=== PATIENT | female | born 1945 | race Caucasian/White ===

== ENCOUNTER 2023-11-15 05:49 | Inpatient (IN) | payer MEDICARE ==
--- NOTE | 2023-11-15 06:24 | ED ---
General Adult HPI - General Chief complaint: Recheck/Abnormal Lab/Rx Stated complaint: High blood pressure Time Seen by Provider: 11/15/23 06:06 Source: patient, EMS, RN notes reviewed Mode of arrival: EMS Limitations: no limitations - History of Present Illness Initial comments: 78-year-old female presents emergency department via EMS from [facility] for e valuation of nausea, fever. Patient reported she been nauseated throughout the night which has improved some now. Patient had notable hypertension but was given medication prior to leaving [facility]. Patient denies chest pain shortness of breath she does have a history of COPD she states she feels weak which is not usual for her. Patient states that she has no localized abdominal pain denies any known sick contacts denies any neck pain or neck stiffness no complaints of headache currently. - Related Data Allergies Allergy/AdvReac Type Severity Reaction Status Date / Time Penicillins Allergy Rash/Hives Verified 11/15/23 05:56 Review of Systems ROS Statement: Those systems with pertinent positive or pertinent negative responses have been documented in the HPI. ROS Other: All systems not noted in ROS Statement are negative. Past Medical History Past Medical History: COPD, Diabetes Mellitus, Hypertension Additional Past Surgical History / Comment(s): Deep brain stimulation Smoking Status: Former smoker Past Alcohol Use History: None Reported Past Drug Use History: None Reported General Exam Limitations: no limitations General appearance: alert, in no apparent distress Head exam: Present: atraumatic, normocephalic, normal inspection Eye exam: Present: normal appearance, PERRL, EOMI. Absent: scleral icterus, c onjunctival injection, periorbital swelling ENT exam: Present: normal exam, normal oropharynx, mucous membranes moist Neck exam: Present: normal inspection, full ROM. Absent: tenderness, meningismus, lymphadenopathy Respiratory exam: Present: normal lung sounds bilaterally. Absent: respiratory distress, wheezes, rales, rhonchi, stridor Cardiovascular Exam: Present: irregular rhythm, normal heart sounds. Absent: regular rate, normal rhythm, systolic murmur, diastolic murmur, rubs, gallop, clicks GI/Abdominal exam: Present: soft, normal bowel sounds. Absent: distended, tenderness, guarding, rebound, rigid Neurological exam: Present: alert, oriented X3, CN II-XII intact Course Vital Signs 11/15/23 11/15/23 05:51 07:41 Temperature 99.3 F Pulse Rate 62 90 Respiratory 17 18 Rate Blood Pressure 140/50 131/60 O2 Sat by Pulse 93 L 97 Oximetry EKG Findings - EKG Comments: EKG Findings:: EKG performed at 6: 27 A-fib with a rate of 91 QRS 81 QT/QTc 365/413 - EKG Results: EKG: interpreted by GALO Medical Decision Making - Medical Decision Making Was pt. sent in by a medical professional or institution (, PA, ELEMENTARY READING SPECIALIST, urgent care, hospital, or [facility]...) When possible be specific @ -No Did you speak to anyone other than the patient for history (EMS, parent, family, police, friend...)? What history was obtained from this source @ -No Did you review nursing and triage notes (agree or disagree)? Why? @ -I reviewed and agree with nursing and triage notes Were old charts reviewed (outside hosp., previous admission, EMS record, old EKG, old radiological studies, urgent care reports/EKG's, [facility] records)? Report findings @ -No old charts were reviewed Differential Diagnosis (chest pain, altered mental status, abdominal pain women, abdominal pain men, vaginal bleeding, weakness, fever, dyspnea, syncope, headache, dizziness, GI bleed, back pain, seizure, CVA, palpatations, mental health, musculoskeletal)? @ -Differential Weakness: Hypoglycemia, shock, sepsis, hyponatremia, anemia, infection, GA, ETOH, adverse medicine reaction, overdose, stroke, this is not meant to be an all-inclusive list. Differential Fever: Pneumonia, viral URI, endocarditis, myocarditis, pericarditis, otitis, sinusit is, peritonsillar Abscess, retropharyngeal Abscess, epiglottitis, peritonitis, appendicitis, diverticulitis, hepatitis, colitis, UTI, PID, TOA, pyelonephritis, prostatitis, epididymitis, meningitis, encephalitis, pulmonary embolism, CVA, thyroid storm, pancreatitis, adrenal crisis, cavernous sinus thrombosis, this is not meant to be an all-inclusive list. EKG interpreted by me (3pts min.). @ -As above X-rays interpreted by me (1pt min.). @ -Chest x-ray shows multifocal pneumonia CT interpreted by me (1pt min.). @ -None done U/S interpreted by me (1pt. min.). @ -None done What testing was considered but not performed or refused? (CT, X-rays, U/S, labs)? Why? @ -None What meds were considered but not given or refused? Why? @ -None Did you discuss the management of the patient with other professionals (professionals i.e. , PA, ELEMENTARY READING SPECIALIST, lab, RT, psych nurse, psychologist social, [employer], teacher, unarmed security officer, case operator)? Give summary @ -Dr. Jamison for admission for bilateral pneumonia, new onset A-fib Was smoking cessation discussed for >3mins.? @ -No Was critical care preformed (if so, how long)? @ -No Were there social determinants of health that impacted care today? How? (Homelessness, low income, unemployed, alcoholism, drug addiction, transportation, low edu. Level, literacy, decrease access to med. care, skilled nursing, rehab)? @ -No Was there de-escalation of care discussed even if they declined (Discuss DNR or withdrawal of care, Hospice)? DNR status @ -No What co-morbidities impacted this encounter? (DM, HTN, Smoking, COPD, CAD, Cancer, CVA, ARF, Chemo, Hep., AIDS, mental health diagnosis, sleep apnea, morbid obesity)? @ -None Was patient admitted / discharged? Hospital course, mention meds given and route, prescriptions, significant lab abnormalities, going to OR and other pertinent info. @ -Admitted patient is found to have bilateral multifocal pneumonia patient is in A-fib but rate controlled and no history. Patient will be admitted for further treatment and management patient did have blood cultures, IV antibiotics started. Undiagnosed new problem with uncertain prognosis? @ -No Drug Therapy requiring intensive monitoring for toxicity (Heparin, Nitro, Insulin, Cardizem)? @ -No Were any procedures done? @ -No Diagnosis/symptom? @ -Pneumonia multifocal, A-fib Acute, or Chronic, or Acute on Chronic? @ -Acute Uncomplicated (without systemic symptoms) or Complicated (systemic symptoms)? @ -Complicated Side effects of treatment? @ -No Exacerbation, Progression, or Severe Exacerbation? @ -No Poses a threat to life or bodily function? How? (Chest pain, USA, GA, pneumonia, PE, COPD, DKA, ARF, appy, cholecystitis, CVA, Diverticulitis, Homicidal, Suicidal, threat to staff... and all critical care pts) @ -Yes pneumonia, respiratory failure - Lab Data Result diagrams: 11/15/23 06:39 11/15/23 06:39 Lab Results 11/15/23 11/15/23 11/15/23 Range/Units 06:39 06:39 06:39 WBC 19.8 H (3.8-10.6) k/uL RBC 3.80 (3.80-5.40) m/uL Hgb 10.4 L (11.4-16.0) gm/dL Hct 32.8 L (34.0-46.0) % MCV 86.4 (80.0-100.0) fL MCH 27.4 (25.0-35.0) pg MCHC 31.7 (31.0-37.0) g/dL RDW 15.0 (11.5-15.5) % Plt Count 353 (150-450) k/uL MPV 8.4 Neutrophils % 88 % Lymphocytes % 6 % Monocytes % 4 % Eosinophils % 1 % Basophils % 0 % Neutrophils # 17.5 H (1.3-7.7) k/uL Lymphocytes # 1.2 (1.0-4.8) k/uL Monocytes # 0.7 (0-1.0) k/uL Eosinophils # 0.2 (0-0.7) k/uL Basophils # 0.1 (0-0.2) k/uL Sodium 136 L (137-145) mmol/L Potassium 4.3 (3.5-5.1) mmol/L Chloride 100 (98-107) mmol/L Carbon Dioxide 32 H (22-30) mmol/L Anion Gap 4 mmol/L BUN 32 H (7-17) mg/dL Creatinine 0.67 (0.52-1.04) mg/dL Est GFR (CKD-EPI)AfAm >90 (>60 ml/min/1.73 sqM) Est GFR (CKD-EPI)NonAf 83 (>60 ml/min/1.73 sqM) Glucose 142 H (74-99) mg/dL Plasma Lactic Acid Joseph 1.1 (0.7-2.0) mmol/L Calcium 9.4 (8.4-10.2) mg/dL Total Bilirubin 0.6 (0.2-1.3) mg/dL AST 27 (14-36) U/L ALT 27 (4-34) U/L Alkaline Phosphatase 100 (38-126) U/L Total Protein 6.3 (6.3-8.2) g/dL Albumin 3.7 (3.5-5.0) g/dL Lipase 145 (23-300) U/L Disposition Clinical Impression: Pneumonia, A-fib Disposition: ADMITTED IP TO THIS HOSP Condition: Fair Referrals: Charles Lal DO [Primary Care Provider] - 1-2 days Time of Disposition: 07:51
[2023-11-15] MEDS: SODIUM CHLORIDE 0.9% 500 ML 500 ML IV STA (06:41)
--- NOTE | 2023-11-15 07:25 | XR ---
EXAMINATION TYPE: XR chest 2V DATE OF EXAM: 11/15/2023 7:17 AM CLINICAL INDICATION:Female, 78 years old with history of fever; COMPARISON: None TECHNIQUE: XR chest 2V Frontal and lateral views of the chest. FINDINGS: Lungs/Pleura: Multifocal airspace opacities. No evidence of pneumothorax or pleural effusion. Pulmonary vascularity: Pulmonary vascular congestion. Heart/mediastinum: Cardiomediastinal silhouette is enlarged and stable. Musculoskeletal: No acute osseous pathology. Other findings: None IMPRESSION: Multifocal airspace opacities concerning for pneumonia versus congestive heart failure pulmonary jam a.
[2023-11-15 07:36] LABS: ALT 27 U/L (4-34); AST 27 U/L (14-36); African American GFR (CKD) >90 (>60 ml/min/1.73 sqM); Albumin 3.7 g/dL (3.5-5.0); Alkaline Phosphatase 100 U/L (38-126); Anion Gap 4 mmol/L; Blood Urea Nitrogen 32 mg/dL (7-17); Calcium 9.4 mg/dL (8.4-10.2); Carbon Dioxide 32 mmol/L (22-30); Chloride 100 mmol/L (98-107); Glucose 142 mg/dL (74-99); Lipase 145 U/L (23-300); Non-African American GFR(CKD) 83 (>60 ml/min/1.73 sqM); Potassium 4.3 mmol/L (3.5-5.1); Sodium 136 mmol/L (137-145); Total Bilirubin 0.6 mg/dL (0.2-1.3); Total Protein 6.3 g/dL (6.3-8.2)
[2023-11-15 07:37] LABS: Basophils # (A) 0.1 k/uL (0-0.2); Basophils % (A) 0 %; Eosinophils # (A) 0.2 k/uL (0-0.7); Eosinophils % (A) 1 %; HCT 32.8 % (34.0-46.0); HGB 10.4 gm/dL (11.4-16.0); Lymphocytes # (A) 1.2 k/uL (1.0-4.8); Lymphocytes % (A) 6 %; MCH 27.4 pg (25.0-35.0); MCHC 31.7 g/dL (31.0-37.0); MCV 86.4 fL (80.0-100.0); Mean Platelet Volume 8.4; Monocytes # (A) 0.7 k/uL (0-1.0); Monocytes % (A) 4 %; Neutrophils # (A) 17.5 k/uL (1.3-7.7); Neutrophils % (A) 88 %; Platelet Count 353 k/uL (150-450); WBC 19.8 k/uL (3.8-10.6)
[2023-11-15] MEDS ORDERED: PNEUMONIA PROTOCOL UTILIZED 1 EACH MISC PO PRN (07:51)
[2023-11-15] MEDS: HEPARIN SODIUM 1,000 UN/ML (10ML VL) IV ONE (08:44)
[2023-11-15] MEDS: HEPARIN SOD,PORK IN 0.45% NACL 25,000 UNIT in 0.45% NACL 1 250ML.BAG IV SCH (08:45)
[2023-11-15] MEDS: AZITHROMYCIN 500 MG in SODIUM CHLORIDE 0.9% 250 ML IVPB STA (08:46)
[2023-11-15 12:11] LABS: Appearance,Urine Clear (Clear); Bilirubin,Urine Negative (Negative); Blood,Urine Negative (Negative); Color,Urine Colorless; Glucose,Urine (UA) Negative (Negative); Ketones,Urine Negative (Negative); Leukocyte Esterase,Urine Negative (Negative); Nitrite,Urine Negative (Negative); PH, Urine 7.5 (5.0-8.0); Protein,Urine 1+ (Negative); RBC,Urine 1 /hpf (0-5); Specific Gravity,Urine 1.011 (1.001-1.035); Squamous Epithelial Cell,Urine 1 /hpf (0-4); Urobilinogen,Urine <2.0 mg/dL (<2.0); WBC,Urine 1 /hpf (0-5)
[2023-11-15] MEDS ORDERED: BACLOFEN 10 MG TAB PO PRN (13:22)
[2023-11-15] MEDS ORDERED: bisacodyL 10 MG SUPP RECTAL PRN (13:22)
[2023-11-15] MEDS ORDERED: NA PHOS,M-B/NA PHOS,DI-BA 133 ML ENEMA RECTAL PRN (13:22)
[2023-11-15] MEDS: carvediloL 6.25 MG TAB PO SCH (13:32)
[2023-11-15] MEDS ORDERED: NON FORMULARY DRUG (Glucerna Shake 1 CAN Ml) PO SCH (14:00)
[2023-11-15] MEDS ORDERED: CALCIUM CARBONATE 500 MG CHEWABLE PO PRN (15:46)
[2023-11-15] MEDS ORDERED: ONDANSETRON 4 MG/2 ML VIAL IVP PRN (15:46)
[2023-11-15] MEDS ORDERED: NALOXONE 0.4 MG/ML 1 ML VIAL IV PRN (15:46)
--- NOTE | 2023-11-15 15:48 | P.HPIM ---
History of Present Illness H&P Date: 11/15/23 Chief Complaint: Not feeling well This is a 78-year-old patient was transferred here from [facility]. Symptoms of nausea and fever. Patient was nauseated throughout the night patient reports some baseline shortness of breath denies any more short of breath than usual. No obvious chest pain. He thinks her appetite is okay. Does use a wheelchair. Has a bowel movement every day. Denies any abdominal pain. Review of systems: GEN.: Tired EYES: None HEENT: None NECK: None RESPIRATORY: Short of breath CARDIOVASCULAR: None GASTROINTESTINAL: None GENITOURINARY: None MUSCULOSKELETAL: Joint pains] LYMPHATICS: None HEMATOLOGICAL: None PSYCHIATRY: [Bit forgetful NEUROLOGICAL: Uses a wheelchair Social history: Former smoker. Currently lives at [facility] Physical examination: VITAL SIGNS: 99.3, 62, 17, 140/50, 93% on 2 L GENERAL: BMI 17.4, thin built reclining a bit short of breath. EYES: Pupils equal. Conjunctiva sultana l. HEENT: External appearance of nose and ears normal, oral cavity grossly normal. NECK: JVD not raised; masses not palpable. HEART: First and second heart sounds are normal; no edema. LUNGS: Respiratory rate increased, diminished breath sounds. ABDOMEN: Soft, nontender, liver spleen not palpable, no masses palpable. PSYCH: Patient is able to hold a simple conversation l. MUSCULOSKELETAL:No Clubbing/cyanosis;muscles-grossly intact. Loss of muscle mass subcutaneous fat. OA. NEUROLOGICAL: Cranial nerves grossly intact; no facial asymmetry, power and sensation grossly intact. LYMPHATICS: No lymph nodes palpable in the axilla and neck INVESTIGATIONS, reviewed in the clinical context: November 15, 2023: White count 19.8 hemoglobin 10.4 platelets 353 sodium 136 potassium 4.3 BUN 32 creatinine 0.67 Troponin I 0.054, 0.045 Procalcitonin 0.10 UA: Protein 1+ Influenza type A, type B RSV, COVID-19: Not detected EKG tracing personally reviewed by me-atrial fibrillation. Rate 91 Chest x-ray film personally reviewed by me-scattered infiltrates. Pacemaker. Assessment and plan: -Multifocal pneumonia, suspect gram-negative organism IV Zithromax. IV ceftriaxone. -Chronic medical debility -Chronic gait dysfunction uses a walker at baseline -Severe protein calorie malnutrition probably from decreased oral intake Food supplement. High-protein diet -Essential hypertension Cozaar 50 mg twice daily Coreg -Persistent atrial fibrillation, rate controlled Coreg -Depression Zoloft 100 mg a day -COPD exacerbation in a prior smoker DuoNeb 3times daily nebulized Pulmicort Care was discussed with patient. Past Medical History Past Medical History: COPD, Diabetes Mellitus, Hypertension Additional Past Surgical History / Comment(s): Deep brain stimulation Smoking Status: Former smoker Past Alcohol Use History: None Reported Past Drug Use History: None Reported Medications and Allergies Home Medications Medication Instructions Recorded Confirmed Type ALPRAZolam [Xanax] 0.25 mg PO BID PRN 11/15/23 11/15/23 History Acetaminophen Tab [Tylenol] 650 mg PO Q4H PRN 11/15/23 11/15/23 History Baclofen 5 mg PO TID PRN 11/15/23 11/15/23 History Doxazosin [Cardura] 2 mg PO BID@0800,1700 11/15/23 11/15/23 History Fluticasone/Vilanterol [Breo 1 puff INHALATION RT-DAILY@79911/15/23 11/15/23 History Ellipta 100-25 Mcg Inhalr] Glucerna Shake 120 - 237 ml PO TID@0800,1400,1700 11/15/23 11/15/23 History INSULIN ASPART (NovoLOG) [NovoLOG See Protocol SQ ACHS 11/15/23 11/15/23 History (formulary)] Losartan [Cozaar] 50 mg PO BID@0800,1700 11/15/23 11/15/23 History Magnesium Hydroxide [Milk of 7,200 mg PO Q2D PRN 11/15/23 11/15/23 History Magnesia Concentrate] Montelukast [Singulair] 10 mg PO DAILY@0811/15/23 11/15/23 History Na Phos,M-B/Na Phos,Di-Ba [Fleet 133 ml RECTAL DAILY PRN 11/15/23 11/15/23 History Adult] Pantoprazole [Protonix] 40 mg PO DAILY@0800 11/15/23 11/15/23 History Sertraline [Zoloft] 100 mg PO DAILY@0811/15/23 11/15/23 History bisacodyL [Dulcolax] 10 mg RECTAL DAILY PRN 11/15/23 11/15/23 History carvediloL [Coreg] 6.25 mg PO Q12HR@0800,2100 11/15/23 11/15/23 History Allergies Allergy/AdvReac Type Severity Reaction Status Date / Time Penicillins Allergy Rash/Hives Verified 11/15/23 12:26 Physical Exam Vitals: Vital Signs Temp Pulse Resp BP Pulse Ox 11/15/23 09:48 75 18 96 11/15/23 07:41 90 18 131/60 97 11/15/23 05:51 99.3 F 62 17 140/50 93 L Intake and Output 11/14/23 11/15/23 11/15/23 22:59 06:59 14:59 Other: Weight 40.37 kg Results CBC & Chem 7: 11/15/23 06:39 11/15/23 06:39 Labs: Abnormal Lab Results - Last 24 Hours (Table) 11/15/23 11/15/23 11/15/23 Range/Units 06:39 06:39 06:39 WBC 19.8 H (3.8-10.6) k/uL Hgb 10.4 L (11.4-16.0) gm/dL Hct 32.8 L (34.0-46.0) % Neutrophils # 17.5 H (1.3-7.7) k/uL Sodium 136 L (137-145) mmol/L Carbon Dioxide 32 H (22-30) mmol/L BUN 32 H (7-17) mg/dL Glucose 142 H (74-99) mg/dL Troponin I 0.054 H* (0.000-0.034) ng/mL
[2023-11-15] MEDS: HEPARIN SODIUM 1,000 UN/ML (10ML VL) IV PRN (16:03)
[2023-11-15] MEDS: LOSARTAN 50 MG TAB PO SCH (16:06)
[2023-11-15] MEDS: DOXAZOSIN 2 MG TAB PO SCH (17:45)
[2023-11-15] MEDS: ACETAMINOPHEN TAB 325 MG TAB PO PRN (18:13)
[2023-11-15 18:52] LABS: Glucose,Whole Blood 162 mg/dL (70-110)
[2023-11-15] MEDS: BUDESONIDE 1 MG/2 ML NEBU INHALATION SCH (19:23)
[2023-11-15] MEDS: IPRATROPIUM-ALBUTEROL 3 ML NEB INHALATION SCH (19:24)
[2023-11-15 21:03] LABS: Glucose,Whole Blood 141 mg/dL (70-110)
[2023-11-15] MEDS: ALPRAZolam 0.25 MG TAB PO PRN (23:02)
[2023-11-15] MEDS: MELATONIN 3 MG TABLET PO PRN (23:02)
[2023-11-16 04:16] LABS: Basophils # (A) 0.1 k/uL (0-0.2); Basophils % (A) 1 %; Eosinophils # (A) 0.3 k/uL (0-0.7); Eosinophils % (A) 3 %; HCT 34.2 % (34.0-46.0); HGB 10.8 gm/dL (11.4-16.0); Hypochromasia Slight; Lymphocytes % (A) 15 %; MCH 28.1 pg (25.0-35.0); MCHC 31.5 g/dL (31.0-37.0); Mean Platelet Volume 7.6; Monocytes # (A) 0.5 k/uL (0-1.0); Monocytes % (A) 4 %; Neutrophils # (A) 10.5 k/uL (1.3-7.7); Neutrophils % (A) 77 %; Platelet Count 333 k/uL (150-450); RBC 3.84 m/uL (3.80-5.40); WBC 13.6 k/uL (3.8-10.6)
[2023-11-16 04:30] LABS: INR 1.1 (<1.2); Partial Thromboplastin Time 51.4 sec (22.0-30.0); Prothrombin Time 11.7 sec (10.0-12.5)
[2023-11-16 04:32] LABS: Glucose,Whole Blood 121 mg/dL (70-110)
--- NOTE | 2023-11-16 07:33 | XR ---
EXAMINATION TYPE: XR chest 2V DATE OF EXAM: 11/16/2023 COMPARISON: 11/15/2023 HISTORY: Shortness of breath TECHNIQUE: Frontal and lateral views of the chest are obtained. FINDINGS: Scattered senescent parenchymal changes noted. Hyperinflation compatible with COPD. No evidence for infiltrate. No evidence for atelectasis. Heart size is stable. Mediastinal structures are stable and grossly unremarkable. No evidence for hilar prominence. Small effusions persist without significant change. Degenerative changes dorsal spine. IMPRESSION: 1. No evidence for acute pulmonary disease.
[2023-11-16] MEDS ORDERED: SYMBICORT 80-4.5 MCG INHALER INHALATION SCH (08:00)
[2023-11-16] MEDS: SERTRALINE 100 MG TAB PO SCH (08:23)
[2023-11-16] MEDS: PANTOPRAZOLE 40 MG TABLET PO SCH (08:23)
[2023-11-16] MEDS: MONTELUKAST 10 MG TAB PO SCH (08:23)
[2023-11-16] MEDS: AZITHROMYCIN 500 MG in SODIUM CHLORIDE 0.9% 250 ML IVPB SCH (10:05)
[2023-11-16 12:16] LABS: Glucose,Whole Blood 146 mg/dL (70-110)
[2023-11-16 16:28] LABS: Glucose,Whole Blood 132 mg/dL (70-110)
--- NOTE | 2023-11-16 17:28 | P.PN ---
Progress Note - Text Progress Note Date: 11/16/23 Chief Complaint: Not feeling well This is a 78-year-old patient was transferred here from [facility]. Symptoms of nausea and fever. Patient was nauseated throughout the night patient reports some baseline shortness of breath denies any more short of breath than usual. No obvious chest pain. He thinks her appetite is okay. Does use a wheelchair. Has a bowel movement every day. Denies any abdominal pain. November 15: Resting in bed. Tired. A bit short of breath. Tolerating diet. IV ceftriaxone. Troponinemia felt to be type II. With underlying infection. Consult cardiology. 2D echo. Active Medications Acetaminophen (Acetaminophen Tab 325 Mg Tab) 650 mg PO Q4H PRN PRN Reason: Fever and/ or Pain Last Admin: 11/15/23 18:13 Dose: 650 mg Albuterol/Ipratropium (Ipratropium-Albuterol 3 Ml Neb) 3 ml INHALATION RT-TID [facility] [place] Last Admin: 11/16/23 11:42 Dose: 3 ml Alprazolam (Alprazolam 0.25 Mg Tab) 0.25 mg PO BID PRN PRN Reason: Anxiety Last Admin: 11/15/23 23:02 Dose: 0.25 mg Baclofen (Baclofen 10 Mg Tab) 5 mg PO TID PRN PRN Reason: Muscle Spasm Bisacodyl (Bisacodyl 10 Mg Supp) 10 mg RECTAL DAILY PRN PRN Reason: Constipation Budesonide (Budesonide 1 Mg/2 Ml Nebu) 1 mg INHALATION RT-BID [facility] [place] Last Admin: 11/16/23 08:20 Dose: 1 mg Calcium Carbonate/Glycine (Calcium Carbonate 500 Mg Chewable) 1,000 mg PO Q4HR PRN PRN Reason: Dyspepsia Carvedilol (Carvedilol 6.25 Mg Tab) 6.25 mg PO Q12HR@0800,2100 [facility] Last Admin: 11/16/23 08:23 Dose: 6.25 mg Doxazosin Mesylate (Doxazosin 2 Mg Tab) 2 mg PO BID@0800,1700 [facility] [place] Last Admin: 11/16/23 16:28 Dose: 2 mg Heparin Sodium (Porcine) (Heparin Sodium 1,000 Un/Ml (10ml Vl)) 0 unit IV PER PROTOCOL PRN; Protocol PRN Reason: Low PTT Last Admin: 11/16/23 00:59 Dose: 2,018 unit Ceftriaxone Sodium 2 gm/ (Sodium Chloride) 50 mls @ 100 mls/hr IVPB Q24HR [facility]; Protocol Stop: 11/19/23 09:29 Last Admin: 11/16/23 08:24 Dose: 100 mls/hr Azithromycin 500 mg/ Sodium (Chloride) 250 mls @ 250 mls/hr IVPB DAILY [facility]; Protocol Stop: 11/18/23 09:01 Last Admin: 11/16/23 10:05 Dose: 250 mls/hr Heparin Sodium/Sodium Chloride (25,000 unit/ Sodium Chloride) 250 mls @ 4.844 mls/hr IV .Q24H [facility] [place]; Protocol Last Admin: 11/16/23 09:48 Dose: Not Given Losartan Potassium (Losartan 50 Mg Tab) 50 mg PO BID@0800,1700 [facility] [place] Last Admin: 11/16/23 16:28 Dose: 50 mg Melatonin (Melatonin 3 Mg Tablet) 3 mg PO HS PRN PRN Reason: Insomnia Last Admin: 11/15/23 23:02 Dose: 3 mg Miscellaneous Information (Pneumonia Protocol Utilized 1 Each Misc) 1 each PO ONCE PRN PRN Reason: Per Protocol Montelukast Sodium (Montelukast 10 Mg Tab) 10 mg PO DAILY@0800 [facility] [place] Last Admin: 11/16/23 08:23 Dose: 10 mg Naloxone HCl (Naloxone 0.4 Mg/Ml 1 Ml Vial) 0.2 mg IV Q2M PRN PRN Reason: Opioid Reversal Ondansetron HCl (Ondansetron 4 Mg/2 Ml Vial) 4 mg IVP Q8HR PRN PRN Reason: Nausea And Vomiting Pantoprazole Sodium (Pantoprazole 40 Mg Tablet) 40 mg PO DAILY@0800 [facility] [place] Last Admin: 11/16/23 08:23 Dose: 40 mg Sertraline HCl (Sertraline 100 Mg Tab) 100 mg PO DAILY@0800 [facility] [place] Last Admin: 11/16/23 08:23 Dose: 100 mg Sodium Biphosphate/Sodium Phosphate (Na Phos,M-B/Na Phos,Di-Ba 133 Ml Enema) 133 ml RECTAL DAILY PRN PRN Reason: Constipation Social history: Former smoker. Currently lives at [facility] Physical examination: VITAL SIGNS: Afebrile, 70, 18, 120 x 76, 98% on 2 L GENERAL: BMI 17.4, thin built reclining a bit, tired, eating a sandwich EYES: Pupils equal. Conjunctiva sultana l. HEENT: External appearance of nose and ears normal, oral cavity grossly normal. NECK: JVD not raised; masses not palpable. HEART: First and second heart sounds are normal; no edema. LUNGS: Respiratory rate increased, diminished breath sounds. ABDOMEN: Soft, nontender, liver spleen not palpable, no masses palpable. PSYCH: Patient is able to hold a simple conversation l. MUSCULOSKELETAL:No Clubbing/cyanosis;muscles-grossly intact. Loss of muscle mass subcutaneous fat. OA. INVESTIGATIONS, reviewed in the clinical context: November 15, 2023: White count 19.8 hemoglobin 10.4 platelets 353 sodium 136 potassium 4.3 BUN 32 creatinine 0.67 Troponin I 0.054, 0.045 Procalcitonin 0.10 UA: Protein 1+ Influenza type A, type B RSV, COVID-19: Not detected EKG tracing personally reviewed by me-atrial fibrillation. Rate 91 Chest x-ray film personally reviewed by me-scattered infiltrates. Pacemaker. Assessment and plan: -Multifocal pneumonia, suspect gram-negative organism IV Zithromax. IV ceftriaxone. -Chronic medical debility -Chronic gait dysfunction uses a walker at baseline -Severe protein calorie malnutrition probably from decreased oral intake Food supplement. High-protein diet -Troponinemia, likely type II OR hemodynamic mismatch Consult cardiology. 2D echo. -Essential hypertension Cozaar 50 mg twice daily Coreg -Persistent atrial fibrillation, rate controlled Coreg -Depression Zoloft 100 mg a day -COPD exacerbation in a prior smoker DuoNeb 3times daily nebulized Pulmicort Discussed with patient. No chest pain. DC IV heparin Past Medical History Past Medical History: COPD, Diabetes Mellitus, Hypertension Additional Past Surgical History / Comment(s): Deep brain stimulation Smoking Status: Former smoker Past Alcohol Use History: None Reported Past Drug Use History: None Reported
[2023-11-16 19:32] LABS: Glucose,Whole Blood 199 mg/dL (70-110)
[2023-11-16] MEDS ORDERED: HEPARIN SODIUM 1,000 UN/ML (10ML VL) IV PRN (20:21)
[2023-11-16] MEDS: HEPARIN SOD,PORK IN 0.45% NACL 25,000 UNIT in 0.45% NACL 1 250ML.BAG IV SCH (21:08)
[2023-11-16] MEDS: HEPARIN SODIUM 1,000 UN/ML (10ML VL) IV ONE (21:44)
[2023-11-17 05:59] LABS: Glucose,Whole Blood 160 mg/dL (70-110)
[2023-11-17 07:06] LABS: Basophils # (A) 0.1 k/uL (0-0.2); Basophils % (A) 1 %; Eosinophils # (A) 0.4 k/uL (0-0.7); Eosinophils % (A) 4 %; HCT 30.9 % (34.0-46.0); HGB 9.7 gm/dL (11.4-16.0); Lymphocytes # (A) 1.9 k/uL (1.0-4.8); Lymphocytes % (A) 20 %; MCH 27.5 pg (25.0-35.0); MCHC 31.3 g/dL (31.0-37.0); MCV 88.1 fL (80.0-100.0); Mean Platelet Volume 7.3; Monocytes # (A) 0.5 k/uL (0-1.0); Monocytes % (A) 6 %; Neutrophils # (A) 6.6 k/uL (1.3-7.7); Neutrophils % (A) 69 %; Platelet Count 301 k/uL (150-450); RBC 3.51 m/uL (3.80-5.40); RDW 15.1 % (11.5-15.5); WBC 9.5 k/uL (3.8-10.6)
[2023-11-17 07:18] LABS: Partial Thromboplastin Time 33.3 sec (22.0-30.0); Prothrombin Time 10.9 sec (10.0-12.5)
--- NOTE | 2023-11-17 11:13 | P.CRDCN ---
History of Present Illness History of present illness: HISTORY OF PRESENT ILLNESS: This is a 78-year-old female with a past medical history significant for essential tremors with history of deep brain stimulator, hypertension, diabetes, GERD, and depression. Patient does not follow with a oral and maxillofacial surgery. We have been asked to see the patient in consultation for elevated troponins. Patient examined at the bedside. Patient was brought to the hospital from [facility] secondary to shortness of breath. Patient was found to have pneumonia and is currently on IV antibiotics. Patient currently denies any chest pain or pressure. EKG completed on admission read out as atrial fibrillation. However upon personal review this is sinus mechanism with PACs. Telemetry also revealed sinus mechanism with frequent PACs. There is no evidence of atrial fibrillation at this time. DIAGNOSTICS: - EKG reveals sinus mechanism with PACs. No signs of acute ischemia. - Chest xray multifocal airspace opacities concerning for pneumonia. - Laboratory data: Troponin 0.054. 0.045. - Current home cardiac medications include carvedilol 6.25 mg twice a day, losartan 50 mg twice a day. REVIEW OF SYSTEMS: At the time of my exam: CONSTITUTIONAL: Denies fever or chills. HEENT: Denies blurred vision, vision changes, or eye pain. Denies hemoptysis CARDIOVASCULAR: Denies chest pain. Denies orthopnea. Denies PND. Denies palpitations RESPIRATORY: + shortness of breath. GASTROINTESTINAL: Denies abdominal pain. Denies nausea or vomiting. HEMATOLOGIC: Denies bleeding disorders. GENITOURINARY: Denies any blood in urine. SKIN: Denies pruitis. Denies rash. PHYSICAL EXAM: VITAL SIGNS: Reviewed. GENERAL: Well-developed in no acute distress. HEENT: Head is normocephalic. Pupils are equal, round. Sclerae anicteric. Mucous membranes of the mouth are moist. Neck supple. No JVD or thyromegaly LUNGS: Respirations even and unlabored. Lungs essentially clear to auscultation bilaterally. HEART: Irregular rate and rhythm. S1 and S2 heard. ABDOMEN: Soft. Nondistended. Nontender. EXTREMITIES: Normal range of motion. No clubbing or cyanosis. Peripheral pu lses intact. No lower extremity edema NEUROLOGIC: Awake and alert. Oriented x 3. ASSESSMENT: Shortness of breath Pneumonia Abnormal troponins, flat, likely type II NH secondary to oxygen supply and demand mismatch, no evidence of acute coronary syndrome Atrial fibrillation, ruled out Sinus mechanism with frequent PACs Hypertension Diabetes GERD History of essential tremors with deep brain stimulator Depression PLAN: An acute coronary but has been ruled out Obtain 2D echo to assess cardiac structure and function EKG and telemetry reveal sinus mechanism with frequent PACs. No evidence of atrial fibrillation. Continue telemetry monitoring to assess for any arrhythmias Discontinue IV heparin Further recommendations pending patient course Nurse practitioner note has been reviewed by physician. Signing provider agrees with the documented findings, assessment, and plan of care documented by COMIC ILLUSTRATOR as a scribe. Past Medical History Past Medical History: COPD, Diabetes Mellitus, Hypertension History of Any Multi-Drug Resistant Organisms: None Reported Additional Past Surgical History / Comment(s): Deep brain stimulation Smoking Status: Former smoker Past Alcohol Use History: None Reported Past Drug Use History: None Reported Medications and Allergies Home Medications Medication Instructions Recorded Confirmed Type ALPRAZolam [Xanax] 0.25 mg PO BID PRN 11/15/23 11/15/23 History Acetaminophen Tab [Tylenol] 650 mg PO Q4H PRN 11/15/23 11/15/23 History Baclofen 5 mg PO TID PRN 11/15/23 11/15/23 History Doxazosin [Cardura] 2 mg PO BID@0800,1700 11/15/23 11/15/23 History Fluticasone/Vilanterol [Breo 1 puff INHALATION RT-DAILY@0800 11/15/23 11/15/23 History Ellipta 100-25 Mcg Inhalr] Glucerna Shake 120 - 237 ml PO TID@0800,1400,1700 11/15/23 11/15/23 History INSULIN ASPART (NovoLOG) [NovoLOG See Protocol SQ ACHS 11/15/23 11/15/23 History (formulary)] Losartan [Cozaar] 50 mg PO BID@0800,1700 11/15/23 11/15/23 History Magnesium Hydroxide [Milk of 7,200 mg PO Q2D PRN 11/15/23 11/15/23 History Magnesia Concentrate] Montelukast [Singulair] 10 mg PO DAILY@0800 11/15/23 11/15/23 History Na Phos,M-B/Na Phos,Di-Ba [Fleet 133 ml RECTAL DAILY PRN 11/15/23 11/15/23 History Adult] Pantoprazole [Protonix] 40 mg PO DAILY@0800 11/15/23 11/15/23 History Sertraline [Zoloft] 100 mg PO DAILY@0800 11/15/23 11/15/23 History bisacodyL [Dulcolax] 10 mg RECTAL DAILY PRN 11/15/23 11/15/23 History carvediloL [Coreg] 6.25 mg PO Q12HR@0800,2100 11/15/23 11/15/23 History Allergies Allergy/AdvReac Type Severity Reaction Status Date / Time Penicillins Allergy Rash/Hives Verified 11/15/23 12:26 Physical Exam Vitals: Vital Signs Temp Pulse Pulse Resp BP Pulse Ox 11/17/23 04:00 98.7 F 102 H 18 163/58 95 11/17/23 02:00 79 18 11/17/23 00:00 98.6 F 79 18 130/57 97 11/16/23 21:29 82 11/16/23 21:11 84 11/16/23 20:00 99.6 F 108 H 18 140/67 93 L 11/16/23 16:00 97.9 F 68 18 154/69 93 L 11/16/23 14:00 70 18 11/16/23 11:51 71 18 11/16/23 11:42 74 18 11/16/23 11:25 70 18 128/76 98 11/16/23 09:09 98 18 11/16/23 08:31 100 18 11/16/23 08:22 101 H 20 97 11/16/23 08:10 98 18 176/108 96 Intake and Output 11/16/23 11/17/23 11/17/23 22:59 06:59 14:59 Intake Total 1190 10 Balance 1190 10 Intake: IV 10 10 Invasive Line 2 10 10 Oral 1180 Other: Voiding Method Toilet Diaper # Voids 1 Weight 40.37 kg Results 11/17/23 06:41 11/15/23 06:39 Coagulation 11/17/23 Range/Units 06:41 PT 10.9 (10.0-12.5) sec APTT 33.3 H (22.0-30.0) sec CBC 11/17/23 Range/Units 06:41 WBC 9.5 (3.8-10.6) k/uL RBC 3.51 L (3.80-5.40) m/uL Hgb 9.7 L (11.4-16.0) gm/dL Hct 30.9 L (34.0-46.0) % Plt Count 301 (150-450) k/uL Current Medications Generic Name Dose Route Start Last Admin Trade Name Freq PRN Reason Stop Dose Admin Acetaminophen 650 mg 11/15/23 13:22 11/15/23 18:13 Acetaminophen Tab 325 Mg Tab PO 650 mg Q4H PRN Administration Fever and/ or Pain Albuterol/Ipratropium 3 ml 11/15/23 15:46 11/16/23 21:10 Ipratropium-Albuterol 3 Ml Neb INHALATION 3 ml RT-TID STEVEN Administration Alprazolam 0.25 mg 11/15/23 13:22 11/15/23 23:02 Alprazolam 0.25 Mg Tab PO 0.25 mg BID PRN Administration Anxiety Baclofen 5 mg 11/15/23 13:22 Baclofen 10 Mg Tab PO TID PRN Muscle Spasm Bisacodyl 10 mg 11/15/23 13:22 Bisacodyl 10 Mg Supp RECTAL DAILY PRN Constipation Budesonide 1 mg 11/15/23 15:46 11/16/23 21:10 Budesonide 1 Mg/2 Ml Nebu INHALATION 1 mg RT-BID STEVEN Administration Calcium Carbonate/Glycine 1,000 mg 11/15/23 15:46 Calcium Carbonate 500 Mg Chewable PO Q4HR PRN Dyspepsia Carvedilol 6.25 mg 11/15/23 13:22 11/16/23 20:12 Carvedilol 6.25 Mg Tab PO 6.25 mg Q12HR@0800,2100 STEVEN Administration Doxazosin Mesylate 2 mg 11/15/23 17:00 11/16/23 16:28 Doxazosin 2 Mg Tab PO 2 mg BID@0800,1700 STEVEN Administration Heparin Sodium (Porcine) 0 unit 11/16/23 20:21 Heparin Sodium 1,000 Un/Ml (10ml Vl) IV PER PROTOCOL PRN Low PTT Protocol Ceftriaxone Sodium 2 gm/ 50 mls @ 100 mls/hr 11/16/23 09:00 11/16/23 08:24 Sodium Chloride IVPB 11/19/23 09:29 100 mls/hr Q24HR STEVEN Administration Protocol Azithromycin 500 mg/ Sodium 250 mls @ 250 mls/hr 11/16/23 09:00 11/16/23 10:05 Chloride IVPB 11/18/23 09:01 250 mls/hr DAILY STEVEN Administration Protocol Heparin Sodium/Sodium Chloride 250 mls @ 7.267 mls/hr 11/16/23 20:30 11/16/23 21:08 25,000 unit/ Sodium Chloride IV 18 units/kg/hr .Q24H STEVEN 7.267 mls/hr Administration Protocol 18 UNITS/KG/HR Losartan Potassium 50 mg 11/15/23 17:00 11/16/23 16:28 Losartan 50 Mg Tab PO 50 mg BID@0800,1700 STEVEN Administration Melatonin 3 mg 11/15/23 15:46 11/15/23 23:02 Melatonin 3 Mg Tablet PO 3 mg HS PRN Administration Insomnia Miscellaneous Information 1 each 11/15/23 07:51 Pneumonia Protocol Utilized 1 Each Misc PO ONCE PRN Per Protocol Montelukast Sodium 10 mg 11/16/23 08:00 11/16/23 08:23 Montelukast 10 Mg Tab PO 10 mg DAILY@0800 STEVEN Administration Naloxone HCl 0.2 mg 11/15/23 15:46 Naloxone 0.4 Mg/Ml 1 Ml Vial IV Q2M PRN Opioid Reversal Ondansetron HCl 4 mg 11/15/23 15:46 Ondansetron 4 Mg/2 Ml Vial IVP Q8HR PRN Nausea And Vomiting Pantoprazole Sodium 40 mg 11/16/23 08:00 11/16/23 08:23 Pantoprazole 40 Mg Tablet PO 40 mg DAILY@0800 STEVEN Administration Sertraline HCl 100 mg 11/16/23 08:00 11/16/23 08:23 Sertraline 100 Mg Tab PO 100 mg DAILY@0800 STEVEN Administration Sodium Biphosphate/Sodium Phosphate 133 ml 11/15/23 13:22 Na Phos,M-B/Na Phos,Di-Ba 133 Ml Enema RECTAL DAILY PRN Constipation Intake and Output 11/16/23 11/17/23 11/17/23 22:59 06:59 14:59 Intake Total 1190 10 Balance 1190 10 Intake: IV 10 10 Invasive Line 2 10 10 Oral 1180 Other: Voiding Method Toilet Diaper # Voids 1 Weight 40.37 kg 11/17/23 06:41 11/15/23 06:39
[2023-11-17 11:33] LABS: Glucose,Whole Blood 148 mg/dL (70-110)
--- NOTE | 2023-11-17 13:08 | CA ---
Transthoracic Echo Report Name: Vivienne Colón Age: 78 Gender: F : 1945 Exam Date: 11/17/2023 10:12 Exam Location: [place] [facility] Ht (in): 60 Wt (lb): 89 Ordering Physician: Rudy Jamison MD Attending/Referring Phys: Research Investigator Hiwot Manuel RDCS Procedure CPT: Indications: Positive troponin Cardiac Hx: Technical Quality: Good Contrast 1: Total Dose (mL): Contrast 2: Total Dose (mL): MEASUREMENTS (Male / Female) Normal Values 2D ECHO LV Diastolic Diameter PLAX 4.8 cm 4.2 - 5.9 / 3.9 - 5.3 cm LV Systolic Diameter PLAX 2.9 cm IVS Diastolic Thickness 1.0 cm 0.6 - 1.0 / 0.6 - 0.9 cm LVPW Diastolic Thickness 1.1 cm 0.6 - 1.0 / 0.6 - 0.9 cm LV Relative Wall Thickness 0.4 RV Internal Dim ED PLAX 1.6 cm LVOT Diameter 1.7 cm LA Systolic Diameter LX 4.6 cm 3.0 - 4.0 / 2.7 - 3.8 cm LV Diastolic Volume MOD BP 58.8 cm??? 67 - 155 / 56 - 104 cm??? LV Systolic Volume MOD BP 15.5 cm??? - 58 / 19 - 49 cm??? LV Ejection Fraction MOD BP 73.6 % >= 55 % LV Cardiac Index MOD BP 2627.2 cm???/min???m??? LV Diastolic Volume MOD 4C 68.8 cm??? LV Systolic Volume MOD 4C 12.8 cm??? LV Ejection Fraction MOD 4C 81.4 % LV Cardiac Index MOD 4C 3400.8 cm???/min???m??? LV Diastolic Length 4C 6.1 cm LV Systolic Length 4C 5.1 cm LV Diastolic Volume MOD 2C 50.0 cm??? LV Systolic Volume MOD 2C 19.7 cm??? LV Ejection Fraction MOD 2C 60.5 % LV Cardiac Index MOD 2C 1840.8 cm???/min???m??? LV Diastolic Length 2C 6.0 cm LV Systolic Length 2C 5.1 cm LA Volume 143.6 cm??? 18 - 58 / 22 - 52 cm??? LA Volume Index 110.4 cm???/m??? 16 - 28 cm???/m??? M-MODE Aortic Root Diameter MM 3.5 cm LA Systolic Diameter MM 3.7 cm LA Ao Ratio MM 1.1 AV Cusp Separation MM 1.7 cm DOPPLER AV Peak Velocity 147.5 cm/s AV Peak Gradient 8.7 mmHg MV Peak Velocity 229.5 cm/s MV Peak Gradient 21.1 mmHg MV Mean Velocity 143.6 cm/s MV Mean Gradient 9.6 mmHg MV Velocity Time Integral 81.5 cm MV Area PHT 1.7 cm??? Mitral E Point Velocity 202.9 cm/s Mitral A Point Velocity 180.0 cm/s Mitral E to A Ratio 1.1 MV Deceleration Time 456.3 ms TR Peak Velocity 292.4 cm/s TR Peak Gradient 34.2 mmHg Right Ventricular Systolic Press 53.4 mmHg FINDINGS Left Ventricle Left ventricular ejection fraction is estimated at 65-70%. Mildly increased septal wall thickness. Mildly increased posterior wall thickness. No obvious regional wall motion abnormalities. Left ventricular cavity size normal. Right Ventricle Normal right ventricular size and function. Moderate to severe pulmonary hypertension. Right ventricular systolic pressure estimated at 53 mmHg. Right Atrium Mild right atrial dilatation. Left Atrium Moderately increased left atrial diameter. Severely increased left atrial volume. Moderately increased left atrial area. Mitral Valve Thyqfapg-[id number] mitral stenosis. Mean Gradient is 9.6 mmHG. Severe mitral annular calcification. Vhqwnijq-ti-[id number] mitral regurgitation. Aortic Valve Trileaflet aortic valve. Trace aortic regurgitation. Diffuse thickening (sclerosis) of the aortic valve cusps without reduced excursion. Tricuspid Valve Structurally normal tricuspid valve. Mild tricuspid regurgitation. Pulmonic Valve Pulmonic valve not well visualized. Trace pulmonic regurgitation. No pulmonic stenosis. Pericardium No pericardial or pleural effusion. Aorta Normal size aortic root and proximal ascending aorta. CONCLUSIONS Preserved LV size and systolic function Moderate pulmonary hypertension Biatrial enlargement Moderate mitral stenosis, calcific with a mean gradient of almost 10 mmHg Dilated IVC Previewed by: Dr. Sunny Bowen MD (Electronically Signed) Final Date: 17 November 2023 13:07
[2023-11-17 13:53] VITALS: BMI 18.3
--- NOTE | 2023-11-17 15:33 | P.DS ---
Providers Date of admission: 11/15/23 07:54 Expected date of discharge: 11/17/23 Attending physician: Rudy Jamison Consults: 11/16/23 17:25 Consult Physician Routine Consulting Provider: Gavin Loo Consult Reason/Comments: Positive troponin Do you want consulting provider notified?: Yes Primary care physician: [facility] Course: Chief Complaint: Not feeling well This is a 78-year-old patient was transferred here from [facility]. Symptoms of nausea and fever. Patient was nauseated throughout the night patient reports some baseline shortness of breath denies any more short of breath than usual. No obvious chest pain. He thinks her appetite is okay. Does use a wheelchair. Has a bowel movement every day. Denies any abdominal pain. November 15: Resting in bed. Tired. A bit short of breath. Tolerating diet. IV ceftriaxone. Troponinemia felt to be type II. With underlying infection. Consult cardiology. 2D echo. November 16: Comfortable. Eating fair. 2D echo shows no wall motion abnormality. Complete 2 more days of Ceftin. Discussed with [employer] social service agency director. Patient to return to [facility]. Follow-up cardiology outpatient Discussion and discharge planning more than 35 minutes Social history: Former smoker. Currently lives at [facility] Physical examination: VITAL SIGNS: 68, 16, 135 x 60, 98% on 2 L GENERAL: BMI 17.4, thin built reclining, cough Noemy EYES: Pupils equal. Conjunctiva sultana l. HEENT: External appearance of nose and ears normal, oral cavity grossly normal. NECK: JVD not raised; masses not palpable. HEART: First and second heart sounds are normal; no edema. LUNGS: Respiratory rate increased, diminished breath sounds. ABDOMEN: Soft, nontender, liver spleen not palpable, no masses palpable. PSYCH: Patient is able to hold a simple conversation l. MUSCULOSKELETAL:No Clubbing/cyanosis;muscles-grossly intact. Loss of muscle mass subcutaneous fat. OA. INVESTIGATIONS, reviewed in the clinical context: November 16: White count 9.5 hemoglobin 9.7 platelets 301 2D echo: EF 65 to 70%No obvious regional wall motion abnormality. Moderate to severe pulmonary essential hypertension. Moderate to severe MS. Moderate to severe MR. Diffuse thickening sclerosis of the aortic valve. November 15, 2023: White count 19.8 hemoglobin 10.4 platelets 353 sodium 136 potassium 4.3 BUN 32 creatinine 0.67 Troponin I 0.054, 0.045 Procalcitonin 0.10 UA: Protein 1+ Influenza type A, type B RSV, COVID-19: Not detected EKG tracing personally reviewed by me-atrial fibrillation. Rate 91 Chest x-ray film personally reviewed by me-scattered infiltrates. Pacemaker. Assessment and plan: -Multifocal pneumonia, suspect gram-negative organism: Much better IV Zithromax. IV ceftriaxone. DC with Ceftin 5 mg twice daily for 2 days -Moderate to severe secondary pulmonary hypertension -Moderate to severe mitral stenosis and moderate to severe mitral regurgitation -Chronic medical debility -Chronic gait dysfunction uses a walker at baseline -Severe protein calorie malnutrition probably from decreased oral intake Food supplement. High-protein diet -Troponinemia, likely type II MS hemodynamic mismatch Seen by cardio 3 -Essential hypertension Cozaar 50 mg twice daily Coreg -Persistent atrial fibrillation, rate controlled Coreg -Depression Zoloft 100 mg a day -COPD exacerbation in a prior smoker DuoNeb 3times daily nebulized Pulmicort -Full code Disposition: [facility] Past Medical History Past Medical History: COPD, Diabetes Mellitus, Hypertension Additional Past Surgical History / Comment(s): Deep brain stimulation Smoking Status: Former smoker Past Alcohol Use History: None Reported Past Drug Use History: None Reported Plan - Discharge Summary Discharge Rx Participant: No New Discharge Prescriptions: New cefUROXime axetiL [Ceftin] 500 mg PO BID #4 tab Ipratropium-Albuterol Nebulize [Duoneb 0.5 mg-3 mg/3 ml Soln] 3 ml INHALATION RT-TID each Continue Magnesium Hydroxide [Milk of Magnesia Concentrate] 7,200 mg PO Q2D PRN PRN Reason: Constipation Baclofen 5 mg PO TID PRN PRN Reason: Muscle Spasm INSULIN ASPART (NovoLOG) [NovoLOG (formulary)] See Protocol SQ ACHS Glucerna Shake 120 - 237 ml PO TID@0800,1400,1700 Losartan [Cozaar] 50 mg PO BID@0800,1700 carvediloL [Coreg] 6.25 mg PO Q12HR@0800,2100 Sertraline [Zoloft] 100 mg PO DAILY@0800 Montelukast [Singulair] 10 mg PO DAILY@0800 Na Phos,M-B/Na Phos,Di-Ba [Fleet Adult] 133 ml RECTAL DAILY PRN PRN Reason: Constipation bisacodyL [Dulcolax] 10 mg RECTAL DAILY PRN PRN Reason: Constipation Acetaminophen Tab [Tylenol] 650 mg PO Q4H PRN PRN Reason: Fever And/ Or Pain Doxazosin [Cardura] 2 mg PO BID@0800,1700 Pantoprazole [Protonix] 40 mg PO DAILY@0800 Fluticasone/Vilanterol [Breo Ellipta 100-25 Mcg Inhalr] 1 puff INHALATION RT- DAILY@0800 ALPRAZolam [Xanax] 0.25 mg PO BID PRN #6 tab PRN Reason: Anxiety Discharge Medication List Acetaminophen Tab [Tylenol] 650 mg PO Q4H PRN 11/15/23 [History] Baclofen 5 mg PO TID PRN 11/15/23 [History] Doxazosin [Cardura] 2 mg PO BID@0800,1700 11/15/23 [History] Fluticasone/Vilanterol [Breo Ellipta 100-25 Mcg Inhalr] 1 puff INHALATION RT- DAILY@0811/15/23 [History] Glucerna Shake 120 - 237 ml PO TID@0800,1400,1700 11/15/23 [History] INSULIN ASPART (NovoLOG) [NovoLOG (formulary)] See Protocol SQ ACHS 11/15/23 [History] Losartan [Cozaar] 50 mg PO BID@0800,1700 11/15/23 [History] Magnesium Hydroxide [Milk of Magnesia Concentrate] 7,200 mg PO Q2D PRN 11/15/23 [History] Montelukast [Singulair] 10 mg PO DAILY@0811/15/23 [History] Na Phos,M-B/Na Phos,Di-Ba [Fleet Adult] 133 ml RECTAL DAILY PRN 11/15/23 [Hist ory] Pantoprazole [Protonix] 40 mg PO DAILY@0800 11/15/23 [History] Sertraline [Zoloft] 100 mg PO DAILY@0800 11/15/23 [History] bisacodyL [Dulcolax] 10 mg RECTAL DAILY PRN 11/15/23 [History] carvediloL [Coreg] 6.25 mg PO Q12HR@0800,2100 11/15/23 [History] ALPRAZolam [Xanax] 0.25 mg PO BID PRN #6 tab 11/17/23 [Rx] Ipratropium-Albuterol Nebulize [Duoneb 0.5 mg-3 mg/3 ml Soln] 3 ml INHALATION RT-TID each 11/17/23 [Rx] cefUROXime axetiL [Ceftin] 500 mg PO BID #4 tab 11/17/23 [Rx] Follow up Appointment(s)/Referral(s): Charles Lal DO [Primary Care Provider] - 1-2 days
[2023-11-17 15:46] VITALS: BP 160/68; PULSE 78; RESP 18; TEMP 98.7
--- NOTE | 2023-11-19 05:41 | CDI ---
Documentation Clarification Form Date: 02/19/24 From: Stephanie Braun Admit Date: 11/15/2023 07:54:00 AM Patient Name: Vivienne Colón Visit Number: [id number] Discharge Date: 11/17/2023 05:58:00 PM ATTENTION: The Clinical Documentation Specialists (CDI) and [facility] Coding Staff appreciate your assistance in clarifying documentation. Please respond to the clarification below the line at the bottom and electronically sign. The CDI & [facility] Coding staff will review the response and follow-up if needed. Please note: Queries are made part of the Legal Health Record. If you have any questions, please contact the author of this message via ITS. Dr. Rudy Jamison, Respiratory failure is documented in ED Note, but is not noted in subsequent documentation. Clarification is requested. History/Risk Factors: gram-negative pneumonia, AE COPD w infection, severe PCM w BMI of 17.4, Type II HI, persistent AF, secondary pulmonary HTN, HTN, T2DM Clinical Indicators: Shortness of breath. O2 sat on admission 93 on 2L NC oxygen, CO2 32 Please clarify if the type and acuity of respiratory failure is: [ ] Acute on chronic hypoxic respiratory failure [ + ] Acute hypoxic respiratory failure [ ] Chronic hypoxic respiratory failure [ ] Acute on chronic hypercapnia respiratory failure [ ] Acute hypercapnia respiratory failure [ ] Chronic hypercapnia respiratory failure+ [ ] Respiratory failure ruled out [ ] Other condition, please specify [ ] Unable to determine MTDD
== END 2023-11-17 17:58 | DRG 177 ==
LOC: EC 05:49 → 3SCARD 07:54
PROVIDERS: ADMIT Hospitalist; ATTEND Hospitalist
DX: J15.69 Pneumonia due to other Gram-negative bacteria (principal); E43 Unspecified severe protein-calorie malnutrition; J96.01 Acute respiratory failure with hypoxia; I21.A1 Myocardial infarction type 2; I48.19 Other persistent atrial fibrillation; J44.0 Chronic obstructive pulmonary disease with (acute) lower respiratory infection; J44.1 Chronic obstructive pulmonary disease with (acute) exacerbation; Z68.1 Body mass index [BMI] 19.9 or less, adult; I27.29 Other secondary pulmonary hypertension; I05.2 Rheumatic mitral stenosis with insufficiency; E11.9 Type 2 diabetes mellitus without complications; I10 Essential (primary) hypertension; F32.A Depression, unspecified; Z79.4 Long term (current) use of insulin; F41.9 Anxiety disorder, unspecified; G25.0 Essential tremor; K21.9 Gastro-esophageal reflux disease without esophagitis; R26.9 Unspecified abnormalities of gait and mobility; K59.00 Constipation, unspecified; G47.00 Insomnia, unspecified; Z79.51 Long term (current) use of inhaled steroids; Z79.899 Other long term (current) drug therapy; Z87.891 Personal history of nicotine dependence; Z96.82 Presence of neurostimulator; Z99.3 Dependence on wheelchair; Z71.3 Dietary counseling and surveillance; Z88.0 Allergy status to penicillin
CPT/HCPCS: 36415; 71046; 80053; 81001; 83605; 83690; 84145; 84484; 85025; 85610; 85730; 87040; 87449; 87636; 93005; 93306; 94640; 96361; 96365; 96367; 96375; 96376; 99285

== ENCOUNTER 2024-01-09 09:06 | Inpatient (IN) | payer MEDICARE ==
--- NOTE | 2024-01-09 09:38 | ED ---
General Adult HPI - General Chief complaint: Shortness of Breath Stated complaint: EMILY Time Seen by Provider: 01/09/24 09:10 Source: patient, EMS, RN notes reviewed, old records reviewed Mode of arrival: EMS Limitations: no limitations - History of Present Illness Initial comments: This is an 78-year-old female with a past medical history significant for atrial fibrillation and COPD. Patient was having difficulty breathing this morning and they upped her oxygen however did not help her so they called EMS when EMS arrived the patient had heart rate of greater than 150 and she was short of breath. Patient states she feels better lying still in bed but if she tries to move she feels very short of breath but patient denies any fever chills or cough recently. Patient denies any chest pain. Patient denies any abdominal pain patient has nausea or vomiting. - Related Data Home Medications Medication Instructions Recorded Confirmed Acetaminophen Tab [Tylenol] 650 mg PO Q4H PRN 11/15/23 01/09/24 Baclofen 5 mg PO TID PRN 11/15/23 01/09/24 Doxazosin [Cardura] 2 mg PO BID@0800,1700 11/15/23 01/09/24 Fluticasone/Vilanterol [Breo 1 puff INHALATION RT-DAILY@79911/15/23 01/09/24 Ellipta 100-25 Mcg Inhalr] INSULIN ASPART (NovoLOG) [NovoLOG See Protocol SQ ACHS 11/15/23 01/09/24 (formulary)] Losartan [Cozaar] 50 mg PO BID@0800,1700 11/15/23 01/09/24 Magnesium Hydroxide [Milk of 7,200 mg PO Q2D PRN 11/15/23 01/09/24 Magnesia Concentrate] Montelukast [Singulair] 10 mg PO DAILY@79911/15/23 01/09/24 Na Phos,M-B/Na Phos,Di-Ba [Fleet 133 ml RECTAL DAILY PRN 11/15/23 01/09/24 Adult] Pantoprazole [Protonix] 40 mg PO DAILY@0800 11/15/23 01/09/24 Sertraline [Zoloft] 100 mg PO DAILY@0800 11/15/23 01/09/24 bisacodyL [Dulcolax] 10 mg RECTAL DAILY PRN 11/15/23 01/09/24 carvediloL [Coreg] 6.25 mg PO Q12HR@0800,2100 11/15/23 01/09/24 ALPRAZolam [Xanax] 0.25 mg PO TID PRN 01/09/24 01/09/24 Doxycycline Hyclate 100 mg PO BID@0800,1700 01/09/24 01/09/24 Ensure Enlive 240 ml PO TID@0800,1400,1700 01/09/24 01/09/24 HYDROcodone/APAP 5-325MG [[place] 1 tab PO Q6H PRN 01/09/24 01/09/24 5-325] Ipratropium-Albuterol Nebulize 3 ml INHALATION RT-Q6H PRN 01/09/24 01/09/24 [Duoneb 0.5 mg-3 mg/3 ml Soln] Sennosides [Senokot] 8.6 mg PO BID@0800,1700 01/09/24 01/09/24 guaiFENesin [Mucinex] 600 mg PO BID@0800,1700 01/09/24 01/09/24 methylPREDNISolone [Medrol Dose See Taper PO DIRECTED 01/09/24 01/09/24 Pack] Allergies Allergy/AdvReac Type Severity Reaction Status Date / Time Penicillins Allergy Rash/Hives Verified 01/09/24 09:38 Review of Systems ROS Statement: Those systems with pertinent positive or pertinent negative responses have been documented in the HPI. ROS Other: All systems not noted in ROS Statement are negative. Past Medical History Past Medical History: Atrial Fibrillation, Heart Failure, COPD, Diabetes Mellitus, Hypertension Additional Past Medical History / Comment(s): CKD stage 3, anemia History of Any Multi-Drug Resistant Organisms: None Reported Additional Past Surgical History / Comment(s): Deep brain stimulation Past Psychological History: Unable to Obtain Smoking Status: Former smoker Past Alcohol Use History: None Reported Past Drug Use History: None Reported General Exam - General Exam Comments Initial Comments: GENERAL: Patient is well-developed and well-nourished. Patient is nontoxic and well- hydrated and is in mild distress. ENT: Neck is soft and supple. No significant lymphadenopathy is noted. Oropharynx is clear. Moist mucous membranes. Neck has full range of motion without eliciting any pain. EYES: The sclera were anicteric and conjunctiva were pink and moist. Extraocular movements were intact and pupils were equal round and reactive to light. Eyelids were unremarkable. PULMONARY: Unlabored respirations. Good breath sounds bilaterally. No audible rales rhonchi or wheezing was noted. CARDIOVASCULAR: Patient's heart rate is about 150 beats a minute ABDOMEN: Soft and nontender with normal bowel sounds. SKIN: Skin is clear with no lesions or rashes and otherwise unremarkable. NEUROLOGIC: Patient is alert and oriented x3. Cranial nerves II through XII are grossly intact. Motor and sensory are also intact. Normal speech, volume and content. Symmetrical smile. MUSCULOSKELETAL: Normal extremities with adequate strength and full range of motion. No lower extremity swelling or edema. No calf tenderness. LYMPHATICS: No significant lymphadenopathy is noted PSYCHIATRIC: Normal psychiatric evaluation. Limitations: no limitations Course Vital Signs 01/09/24 01/09/24 01/09/24 09:08 09:52 11:13 Temperature 97.7 F Pulse Rate 145 H 115 H 141 H Respiratory 32 H 28 H 28 H Rate Blood Pressure 162/114 134/96 171/94 O2 Sat by Pulse 95 92 L 91 L Oximetry Medical Decision Making - Medical Decision Making EKG is interpreted by myself. EKG shows atrial fibrillation with rapid ventricular response at 145 bpm QRS is 100 QT interval is 280 QTc is 364. Patient's EKG shows no ST segment ovation or depression. Was pt. sent in by a medical professional or institution (, PA, COURT REGISTRY OFFICER, urgent care, hospital, or snf...) When possible be specific @ -No Did you speak to anyone other than the patient for history (EMS, parent, family, police, friend...)? What history was obtained from this source @ -No Did you review nursing and triage notes (agree or disagree)? Why? @ -I reviewed and agree with nursing and triage notes Were old charts reviewed (outside hosp., previous admission, EMS record, old EKG, old radiological studies, urgent care reports/EKG's, snf records)? Report findings @ -No old charts were reviewed Differential Diagnosis? @ -Differential Dyspnea: Coronary syndrome, arrhythmia, tamponade, asthma, COPD, pulmonary embolism, pneumonia, pneumothorax, pulmonary effusion, anaphylaxis, diabetic ketoacidosis, flailed chest, pulmonary contusion, diaphragmatic rupture, anemia, neuromuscular, this is not meant to be an all-inclusive list. EKG interpreted by me (3pts min.). @ -As above X-rays interpreted by me (1pt min.). @ -Chest x-ray shows no acute abnormality there still remains a left-sided p leural effusion CT interpreted by me (1pt min.). @ -None done U/S interpreted by me (1pt. min.). @ -None done What testing was considered but not performed or refused? (CT, X-rays, U/S, labs)? Why? @ -None What meds were considered but not given or refused? Why? @ -None Did you discuss the management of the patient with other professionals (professionals i.e. , PA, COURT REGISTRY OFFICER, lab, RT, psych nurse, pediatric social worker, metal bumper, teacher, privacy officer, case finishing machine adjuster)? Give summary @ -[facility] the patient wrote admitting orders Was smoking cessation discussed for >3mins.? @ -No Was critical care preformed (if so, how long)? @ -35 minutes Were there social determinants of health that impacted care today? How? (Homelessness, low income, unemployed, alcoholism, drug addiction, transportation, low edu. Level, literacy, decrease access to med. care, skilled nursing, rehab)? @ -No Was there de-escalation of care discussed even if they declined (Discuss DNR or withdrawal of care, Hospice)? DNR status @ -No What co-morbidities impacted this encounter? (DM, HTN, Smoking, COPD, CAD, Cancer, CVA, ARF, Chemo, Hep., AIDS, mental health diagnosis, sleep apnea, morbid obesity)? @ -None Was patient admitted / discharged? Hospital course, mention meds given and route, prescriptions, significant lab abnormalities, going to OR and other pertinent info. @ -Patient came in in A-fib with rapid ventricular response and started the patient on Cardizem after Cardizem bolus. Patient also received heparin [facility] Undiagnosed new problem with uncertain prognosis? @ -No Drug Therapy requiring intensive monitoring for toxicity (Heparin, Nitro, Insulin, Cardizem)? @ -No Were any procedures done? @ -No Diagnosis/symp A-fib with rapid ventricular response jerome? @ -A-fib with rapid ventricular response Acute, or Chronic, or Acute on Chronic? @ -Acute Uncomplicated (without systemic symptoms) or Complicated (systemic symptoms)? @ -Complicated Side effects of treatment? @ -No Exacerbation, Progression, or Severe Exacerbation? @ -No Poses a threat to life or bodily function? How? (Chest pain, [place], [place], pneumonia, PE, COPD, DKA, ARF, appy, cholecystitis, CVA, Diverticulitis, Homicidal, Lopez icidal, threat to staff... and all critical care pts) @ -Yes this can lead to poor perfusion and endorgan dysfunction - Lab Data Result diagrams: 01/09/24 09:32 01/09/24 09:32 Lab Results 01/09/24 01/09/24 01/09/24 Range/Units 09:32 09:32 09:32 WBC 11.9 H (3.8-10.6) k/uL RBC 4.21 (3.80-5.40) m/uL Hgb 11.4 (11.4-16.0) gm/dL Hct 36.3 (34.0-46.0) % MCV 86.2 (80.0-100.0) fL MCH 27.2 (25.0-35.0) pg MCHC 31.5 (31.0-37.0) g/dL RDW 15.9 H (11.5-15.5) % Plt Count 523 H (150-450) k/uL MPV 7.0 Neutrophils % 79 % Lymphocytes % 14 % Monocytes % 5 % Eosinophils % 1 % Basophils % 0 % Neutrophils # 9.4 H (1.3-7.7) k/uL Lymphocytes # 1.6 (1.0-4.8) k/uL Monocytes # 0.6 (0-1.0) k/uL Eosinophils # 0.1 (0-0.7) k/uL Basophils # 0.0 (0-0.2) k/uL Hypochromasia Moderate PT 11.8 (10.0-12.5) sec INR 1.1 (<1.2) APTT 24.7 (22.0-30.0) sec Sodium 140 (137-145) mmol/L Potassium 5.2 H (3.5-5.1) mmol/L Chloride 102 (98-107) mmol/L Carbon Dioxide 31 H (22-30) mmol/L Anion Gap 7 mmol/L BUN 50 H (7-17) mg/dL Creatinine 0.90 (0.52-1.04) mg/dL Est GFR (CKD-EPI)AfAm 70 (>60 ml/min/1.73 sqM) Est GFR (CKD-EPI)NonAf 61 (>60 ml/min/1.73 sqM) Glucose 175 H (74-99) mg/dL Plasma Lactic Acid Joseph (0.7-2.0) mmol/L Calcium 10.1 (8.4-10.2) mg/dL Magnesium 1.9 (1.6-2.3) mg/dL Total Bilirubin 0.5 (0.2-1.3) mg/dL AST 35 (14-36) U/L ALT 49 H (4-34) U/L Alkaline Phosphatase 113 (38-126) U/L Troponin I (0.000-0.034) ng/mL NT-Pro-B Natriuret Pep 61567 pg/mL Total Protein 7.0 (6.3-8.2) g/dL Albumin 4.2 (3.5-5.0) g/dL 01/09/24 01/09/24 Range/Units 09:32 09:32 WBC (3.8-10.6) k/uL RBC (3.80-5.40) m/uL Hgb (11.4-16.0) gm/dL Hct (34.0-46.0) % MCV (80.0-100.0) fL MCH (25.0-35.0) pg MCHC (31.0-37.0) g/dL RDW (11.5-15.5) % Plt Count (150-450) k/uL MPV Neutrophils % % Lymphocytes % % Monocytes % % Eosinophils % % Basophils % % Neutrophils # (1.3-7.7) k/uL Lymphocytes # (1.0-4.8) k/uL Monocytes # (0-1.0) k/uL Eosinophils # (0-0.7) k/uL Basophils # (0-0.2) k/uL Hypochromasia PT (10.0-12.5) sec INR (<1.2) APTT (22.0-30.0) sec Sodium (137-145) mmol/L Potassium (3.5-5.1) mmol/L Chloride (98-107) mmol/L Carbon Dioxide (22-30) mmol/L Anion Gap mmol/L BUN (7-17) mg/dL Creatinine (0.52-1.04) mg/dL Est GFR (CKD-EPI)AfAm (>60 ml/min/1.73 sqM) Est GFR (CKD-EPI)NonAf (>60 ml/min/1.73 sqM) Glucose (74-99) mg/dL Plasma Lactic Acid Joseph 1.5 (0.7-2.0) mmol/L Calcium (8.4-10.2) mg/dL Magnesium (1.6-2.3) mg/dL Total Bilirubin (0.2-1.3) mg/dL AST (14-36) U/L ALT (4-34) U/L Alkaline Phosphatase (38-126) U/L Troponin I 0.061 H* (0.000-0.034) ng/mL NT-Pro-B Natriuret Pep pg/mL Total Protein (6.3-8.2) g/dL Albumin (3.5-5.0) g/dL Disposition Clinical Impression: Atrial fibrillation with rapid ventricular response Disposition: ADMITTED IP TO THIS HOSP Referrals: Charles Lal DO [Primary Care Provider] - 1-2 days Time of Disposition: 11:25
[2024-01-09 09:48] LABS: Basophils % (A) 0 %; Eosinophils # (A) 0.1 k/uL (0-0.7); Eosinophils % (A) 1 %; HCT 36.3 % (34.0-46.0); HGB 11.4 gm/dL (11.4-16.0); Hypochromasia Moderate; Lymphocytes # (A) 1.6 k/uL (1.0-4.8); Lymphocytes % (A) 14 %; MCH 27.2 pg (25.0-35.0); MCHC 31.5 g/dL (31.0-37.0); MCV 86.2 fL (80.0-100.0); Monocytes # (A) 0.6 k/uL (0-1.0); Monocytes % (A) 5 %; Neutrophils # (A) 9.4 k/uL (1.3-7.7); Neutrophils % (A) 79 %; Platelet Count 523 k/uL (150-450); RBC 4.21 m/uL (3.80-5.40); RDW 15.9 % (11.5-15.5); WBC 11.9 k/uL (3.8-10.6)
[2024-01-09] MEDS: DILTIAZEM 125 MG in SODIUM CHLORIDE 0.9% 100 ML IV SCH (09:48)
[2024-01-09] MEDS: DILTIAZEM DRIP BOLUS FROM BAG 1 MG SOLN IV ONE (09:48)
[2024-01-09 09:57] LABS: INR 1.1 (<1.2); Prothrombin Time 11.8 sec (10.0-12.5)
[2024-01-09] MEDS: HEPARIN SODIUM 1,000 UN/ML (10ML VL) IV ONE (09:57)
[2024-01-09 09:58] LABS: Partial Thromboplastin Time 24.7 sec (22.0-30.0)
[2024-01-09] MEDS: HEPARIN SOD,PORK IN 0.45% NACL 25,000 UNIT in 0.45% NACL 1 250ML.BAG IV SCH (09:58)
[2024-01-09 09:59] LABS: ALT 49 U/L (4-34); AST 35 U/L (14-36); African American GFR (CKD) 70 (>60 ml/min/1.73 sqM); Albumin 4.2 g/dL (3.5-5.0); Alkaline Phosphatase 113 U/L (38-126); Anion Gap 7 mmol/L; Blood Urea Nitrogen 50 mg/dL (7-17); Calcium 10.1 mg/dL (8.4-10.2); Carbon Dioxide 31 mmol/L (22-30); Chloride 102 mmol/L (98-107); Glucose 175 mg/dL (74-99); Magnesium 1.9 mg/dL (1.6-2.3); Non-African American GFR(CKD) 61 (>60 ml/min/1.73 sqM); Potassium 5.2 mmol/L (3.5-5.1); Sodium 140 mmol/L (137-145); Total Bilirubin 0.5 mg/dL (0.2-1.3)
[2024-01-09] MEDS: SODIUM CHLORIDE 0.9% 1,000 ML IV STA (09:59)
[2024-01-09 10:08] LABS: NT-Pro-B-Type Natriuretic Pept 19500 pg/mL
--- NOTE | 2024-01-09 10:25 | XR ---
EXAMINATION TYPE: XR chest 2V DATE OF EXAM: 01/09/2024 9:39 AM CLINICAL INDICATION:Female, 78 years old with history of difficulty breathing; [facility] COMPARISON: 11/16/2023 TECHNIQUE: XR chest 2V. Frontal and lateral views of the chest.. FINDINGS: Bilateral electronic devices, likely neural stimulators, are again seen with leads extending up into the bilateral neck beyond the [id number]. Bones and soft tissues appear stable. Stable cardiomediastinal silhouette. The heart appears mildly enlarged. Aortic atherosclerotic calcif ication. Lungs are hyperinflated with mildly coarsened appearance to the interstitium again noted, likely news intern andres changes which could be COPD related. Blunting of the left greater than right costophrenic angle s uggesting small to moderate left and small right pleural effusion, with probable adjacent atelectasis , similar to previous. No clear evidence of an acute consolidative process or hilar region mass. No p neumothorax visualized. IMPRESSION: Overall similar appearance of the chest, including small to moderate pleural effusions, greatest on t he left.
[2024-01-09] MEDS: FUROSEMIDE 10 MG/ML 2 ML VIAL IV ONE (11:58)
[2024-01-09] MEDS: MAGNESIUM SULFATE-D5W PMX 1 GM in DEXTROSE/WATER 1 100ML.BAG IVPB SCH (12:08)
[2024-01-09] MEDS: LORazepam 2 MG/ML INJ IV STA (13:03)
[2024-01-09] MEDS: FUROSEMIDE 10 MG/ML 2 ML VIAL IV STA (13:14)
[2024-01-09] MEDS: HEPARIN SODIUM 1,000 UN/ML (10ML VL) IV PRN (17:09)
[2024-01-09] MEDS ORDERED: ACETAMINOPHEN TAB 325 MG TAB PO PRN (18:00)
--- NOTE | 2024-01-09 18:00 | P.HPIM ---
History of Present Illness H&P Date: 01/09/24 History of present illness: 78-year-old female with past medical history significant for atrial fibri llation, CHF, COPD, diabetes mellitus, hypertension, CKD, anemia who presented to ER with a complaint of shortness of breath. Patient stated that her shortness of breath was progressively getting worse for the last few days. Patient also complained of cough with clear sputum, worsening shortness of breath with laying flat. Patient reported worsening shortness of breath with exertion. Patient also complained of chills, denied any fever. Patient denied any chest pain, palpitations, nausea vomiting diarrhea constipation abdominal pain dysuria urgency frequency. In the ED patient was afebrile, patient was found to be in A-fib with RVR with heart rate in the 140s, was tachypneic, blood pressure was elevated 171/94, patient required 3 to 4 L supplemental oxygen, was saturating 90%. WBCs 11.9, hemoglobin 11.4, platelet 523, absolute neutrophils elevated 9.4. INR 1.1. Troponin was elevated 0.061. Sodium 140, potassium 5.2, chloride 102, CO2 31, BUN 50, creatinine 0.90, GFR 61. Lactic acid was normal 1.5. NT proBNP was 19,500. EKG showed A-fib with RVR. Chest x-ray showed small to moderate pleural effusion greatest on the left. REVIEW OF SYSTEMS: CONSTITUTIONAL: No fever, no malaise, no fatigue. HEENT: No recent visual problems or hearing problems. Denied any sore throat. CARDIOVASCULAR: No chest pain, orthopnea, PND, no palpitations, no syncope. PULMONARY: No shortness of breath, no cough, no hemoptysis. GASTROINTESTINAL: No diarrhea, no nausea, no vomiting, no abdominal pain. NEUROLOGICAL: No headaches, no weakness, no numbness. HEMATOLOGICAL: Denies any bleeding or petechiae. GENITOURINARY: Denies any burning micturition, frequency, or urgency. MUSCULOSKELETAL/RHEUMATOLOGICAL: Denies any joint pain, swelling, or any muscle pain. ENDOCRINE: Denies any polyuria or polydipsia. The rest of the 14-point review of systems is negative. PHYSICAL EXAMINATION: GENERAL: A&O x3, NAD HEENT: EOMI, Sclerae anicteric, Moist Mucous membranes Neck: Supple, Non tender, No JVD PULMONARY: Equal breath souds B/L, No wheezing, No crackles. CARDIOVASCULAR: S1, S2 present. No murmurs, rubs, or gallops. ABDOMEN: Soft, nontender, nondistended, normoactive bowel sounds. No guarding or rebound tenderness. MUSCULOSKELETAL: No edema, No cyanosis. No clubbing. Normal ROM. Intact peripheral pulses. EXTREMITIES: No cyanosis, clubbing, or pedal edema. Skin: Warm. No Rash Assessment and plan: Acute hypoxic respiratory failure: Acute on chronic diastolic CHF: A-fib with RVR: Persistent atrial fibrillation: Elevated troponin: Demand ischemia Moderate to severe pulmonary hypertension Moderate to severe mitral stenosis Moderate to severe mitral regurg Severe PCM: Hypertension Depression: COPD: Chronic debility: Plan: Presented with shortness of breath, fluid overloaded on exam, found to be in A- fib with RVR on presentation Cardizem drip, resume Coreg heparin gtt IV diuresis Cardiac diet and diabetic diet Monitor with serial troponin system support technician renal function Resume home meds PT/OT consult Consult cardiology. DVT prophylaxis Monitor vital signs and labs Continue telemetry monitoring Labs and medication were reviewed. Continue same treatment. Resume home medication. Further recommendations as per clinical course of the patient Dictation was produced using [employer] dictation software. please excuse any grammatical, word or spelling errors. Past Medical History Past Medical History: Atrial Fibrillation, Heart Failure, COPD, Diabetes Mellitus, Hypertension Additional Past Medical History / Comment(s): CKD stage 3, anemia History of Any Multi-Drug Resistant Organisms: None Reported Additional Past Surgical History / Comment(s): Deep brain stimulation Past Psychological History: Unable to Obtain Smoking Status: Former smoker Past Alcohol Use History: None Reported Past Drug Use History: None Reported Medications and Allergies Home Medications Medication Instructions Recorded Confirmed Type Acetaminophen Tab [Tylenol] 650 mg PO Q4H PRN 11/15/23 01/09/24 History Baclofen 5 mg PO TID PRN 11/15/23 01/09/24 History Doxazosin [Cardura] 2 mg PO BID@0800,1700 11/15/23 01/09/24 History Fluticasone/Vilanterol [Breo 1 puff INHALATION RT-DAILY@0800 11/15/23 01/09/24 History Ellipta 100-25 Mcg Inhalr] INSULIN ASPART (NovoLOG) [NovoLOG See Protocol SQ ACHS 11/15/23 01/09/24 History (formulary)] Losartan [Cozaar] 50 mg PO BID@0800,1700 11/15/23 01/09/24 History Magnesium Hydroxide [Milk of 7,200 mg PO Q2D PRN 11/15/23 01/09/24 History Magnesia Concentrate] Montelukast [Singulair] 10 mg PO DAILY@0800 11/15/23 01/09/24 History Na Phos,M-B/Na Phos,Di-Ba [Fleet 133 ml RECTAL DAILY PRN 11/15/23 01/09/24 History Adult] Pantoprazole [Protonix] 40 mg PO DAILY@0800 11/15/23 01/09/24 History Sertraline [Zoloft] 100 mg PO DAILY@0800 11/15/23 01/09/24 History bisacodyL [Dulcolax] 10 mg RECTAL DAILY PRN 11/15/23 01/09/24 History carvediloL [Coreg] 6.25 mg PO Q12HR@0800,2100 11/15/23 01/09/24 History ALPRAZolam [Xanax] 0.25 mg PO TID PRN 01/09/24 01/09/24 History Doxycycline Hyclate 100 mg PO BID@0800,1700 01/09/24 01/09/24 History Ensure Enlive 240 ml PO TID@0800,1400,1700 01/09/24 01/09/24 History HYDROcodone/APAP 5-325MG [[place] 1 tab PO Q6H PRN 01/09/24 01/09/24 History 5-325] Ipratropium-Albuterol Nebulize 3 ml INHALATION RT-Q6H PRN 01/09/24 01/09/24 History [Duoneb 0.5 mg-3 mg/3 ml Soln] Sennosides [Senokot] 8.6 mg PO BID@0800,1700 01/09/24 01/09/24 History guaiFENesin [Mucinex] 600 mg PO BID@0800,1700 01/09/24 01/09/24 History methylPREDNISolone [Medrol Dose See Taper PO DIRECTED 01/09/24 01/09/24 History Pack] Allergies Allergy/AdvReac Type Severity Reaction Status Date / Time Penicillins Allergy Rash/Hives Verified 01/09/24 09:38 Physical Exam Vitals: Vital Signs Temp Pulse Resp BP Pulse Ox 01/09/24 16:43 131 H 20 129/75 92 L 01/09/24 15:47 120 H 20 93 L 01/09/24 14:38 98.2 F 129 H 20 109/81 93 L 01/09/24 12:00 134 H 28 H 171/108 90 L 01/09/24 11:13 141 H 28 H 171/94 91 L 01/09/24 09:52 115 H 28 H 134/96 92 L 01/09/24 09:08 97.7 F 145 H 32 H 162/114 95 Intake and Output 01/09/24 01/09/24 01/09/24 06:59 14:59 22:59 Intake Total 35.191 Balance 35.191 Intake: Intake, IV Titration 35.191 Amount Heparin Sod,Pork in 0.45% 35.191 NaCl 25,000 unit In 0.45 % NaCl 1 250ml.bag @ 12 UNITS/KG/HR 4.899 mls/hr IV .Q24H [facility] Rx#: [id number] Other: Weight 40.823 kg Results CBC & Chem 7: 01/10/24 07:05 01/10/24 07:05 Labs: Abnormal Lab Results - Last 24 Hours (Table) 01/09/24 01/09/24 01/09/24 Range/Units 09:32 09:32 09:32 WBC 11.9 H (3.8-10.6) k/uL RDW 15.9 H (11.5-15.5) % Plt Count 523 H (150-450) k/uL Neutrophils # 9.4 H (1.3-7.7) k/uL Potassium 5.2 H (3.5-5.1) mmol/L Carbon Dioxide 31 H (22-30) mmol/L BUN 50 H (7-17) mg/dL Glucose 175 H (74-99) mg/dL ALT 49 H (4-34) U/L Troponin I 0.061 H* (0.000-0.034) ng/mL
[2024-01-09] MEDS ORDERED: BACLOFEN 10 MG TAB PO PRN (18:03)
[2024-01-09] MEDS ORDERED: HYDROcodone/APAP 5-325MG 1 EACH TAB PO PRN (18:03)
[2024-01-09] MEDS ORDERED: ALBUTEROL HFA INHALER INHALATION PRN (18:08)
[2024-01-09] MEDS ORDERED: DEXTROSE 50% SYRINGE 50 ML IVP PRN ×2 (18:17)
[2024-01-09 19:05] LABS: Glucose,Whole Blood 143 mg/dL (70-110)
[2024-01-09] MEDS: IPRATROPIUM-ALBUTEROL 3 ML NEB INHALATION PRN (19:55)
[2024-01-09 21:56] LABS: Glucose,Whole Blood 156 mg/dL (70-110)
[2024-01-09] MEDS: carvediloL 6.25 MG TAB PO SCH (22:09)
[2024-01-09] MEDS: INSULIN ASPART (NovoLOG) 100 UNIT/ML VIAL SQ SCH (22:09)
[2024-01-10 06:15] LABS: Glucose,Whole Blood 144 mg/dL (70-110)
[2024-01-10 07:42] LABS: Basophils % (A) 0 %; Eosinophils # (A) 0.2 k/uL (0-0.7); Eosinophils % (A) 1 %; HCT 33.4 % (34.0-46.0); HGB 10.7 gm/dL (11.4-16.0); Hypochromasia Moderate; Lymphocytes # (A) 1.4 k/uL (1.0-4.8); Lymphocytes % (A) 10 %; MCH 27.3 pg (25.0-35.0); MCHC 32.2 g/dL (31.0-37.0); Mean Platelet Volume 7.3; Monocytes # (A) 0.7 k/uL (0-1.0); Monocytes % (A) 5 %; Neutrophils # (A) 11.1 k/uL (1.3-7.7); Neutrophils % (A) 82 %; Platelet Count 486 k/uL (150-450); RBC 3.93 m/uL (3.80-5.40); RDW 15.8 % (11.5-15.5); WBC 13.5 k/uL (3.8-10.6)
[2024-01-10 07:53] LABS: African American GFR (CKD) 61 (>60 ml/min/1.73 sqM); Anion Gap 5 mmol/L; Blood Urea Nitrogen 45 mg/dL (7-17); Calcium 9.3 mg/dL (8.4-10.2); Carbon Dioxide 32 mmol/L (22-30); Chloride 100 mmol/L (98-107); Glucose 138 mg/dL (74-99); Magnesium 2.2 mg/dL (1.6-2.3); Non-African American GFR(CKD) 53 (>60 ml/min/1.73 sqM); Sodium 137 mmol/L (137-145)
[2024-01-10] MEDS: PANTOPRAZOLE 40 MG TABLET PO SCH (08:11)
[2024-01-10] MEDS: FUROSEMIDE 10 MG/ML 4 ML VIAL IV SCH (08:11)
[2024-01-10] MEDS: guaiFENesin 600 MG TABLET.ER PO SCH (08:11)
[2024-01-10] MEDS: DOXAZOSIN 2 MG TAB PO SCH (08:11)
[2024-01-10] MEDS: MONTELUKAST 10 MG TAB PO SCH (08:11)
[2024-01-10] MEDS: SENNOSIDES 8.6 MG TAB PO SCH (08:11)
[2024-01-10] MEDS: LOSARTAN 50 MG TAB PO SCH (08:11)
[2024-01-10] MEDS: SERTRALINE 100 MG TAB PO SCH (08:11)
[2024-01-10] MEDS: SYMBICORT 80-4.5 MCG INHALER INHALATION SCH (08:35)
[2024-01-10 11:25] LABS: Glucose,Whole Blood 177 mg/dL (70-110)
[2024-01-10] MEDS: MAGNESIUM HYDROXIDE 2,400 MG/30 ML CUP PO PRN (12:32)
--- NOTE | 2024-01-10 15:31 | P.PN ---
Subjective Progress Note Date: 01/10/24 Interval History: 78-year-old female with past medical history significant for atrial fibrillation, CHF, COPD, diabetes mellitus, hypertension, CKD, anemia who presented to ER with a complaint of shortness of breath. Patient stated that her shortness of breath was progressively getting worse for the last few days. Patient also complained of cough with clear sputum, worsening shortness of breath with laying flat. Patient reported worsening shortness of breath with exertion. Patient also complained of chills, denied any fever. Patient denied any chest pain, palpitations, nausea vomiting diarrhea constipation abdominal pain dysuria urgency frequency. In the ED patient was afebrile, patient was found to be in A-fib with RVR with heart rate in the 140s, was tachypneic, blood pressure was elevated 171/94, patient required 3 to 4 L supplemental oxygen, was saturating 90%. WBCs 11.9, hemoglobin 11.4, platelet 523, absolute neutrophils elevated 9.4. INR 1.1. Troponin was elevated 0.061. Sodium 140, potassium 5.2, chloride 102, CO2 31, BUN 50, creatinine 0.90, GFR 61. Lactic acid was normal 1.5. NT proBNP was 19,500. EKG showed A-fib with RVR. Chest x-ray showed small to moderate pleural effusion greatest on the left. 01/10/24 Patient was seen and examined today. Remains on supplemental oxygen, patient uses 2 to 4 L oxygen at baseline. Heart rate is better controlled, currently on Cardizem drip 10 mg daily. Will continue on Coreg. Continues on IV Lasix, respiratory status is gradually improving. Patient still fluid overloaded. Troponin trend remained flat. WBCs 13.5 likely reactive, remained afebrile. Potassium has improved to 4.0. Creatinine slightly up 1.01. HbA1c 7.0. 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 Resume home meds, continue home inhalers. PT/OT consult Consult cardiology. DVT prophylaxis AC PHYSICAL EXAMINATION: GENERAL: The patient is A&O x3, NAD HEENT: EOMI, Sclerae anicteric, Moist Mucous membranes Neck: Supple, Non tender, No JVD CARDIOVASCULAR: S1, S2 present. No murmurs, rubs, or gallops. PULMONARY: Equal breath souds B/L, No wheezing, B/L crackles. ABDOMEN: Soft, nontender, nondistended, normoactive bowel sounds. No guarding or rebound tenderness. MUSCULOSKELETAL: No edema, No cyanosis. No clubbing. Normal ROM. Intact peripheral pulses. Skin; Warm. No rash. REVIEW OF SYSTEMS: CONSTITUTIONAL: No fever or chills. CARDIOVASCULAR: No chest pain, palpitations or syncope. PULMONARY: Complains of shortness of breath, cough. GASTROINTESTINAL: No nausea, vomiting, diarrhea, abdominal pain. : No Dysuria, urgency, frequency. Extremities: No edema. NEUROLOGICAL: No headaches, no weakness, or numbness Dictation was produced using [employer] dictation software. please excuse any grammatical, word or spelling errors. Objective - Vital Signs Vital signs: Vital Signs Temp 97.6 F 01/10/24 11:12 Pulse 84 01/10/24 11:12 Resp 18 01/10/24 11:12 BP 126/61 01/10/24 11:12 Pulse Ox 95 01/10/24 11:12 FiO2 Intake & Output 01/09/24 01/10/24 01/10/24 18:59 06:59 18:59 Intake Total 39.524 174.694 250.998 Output Total 1300 450 Balance 39.524 -1125.306 -199.002 Weight 40.823 kg 44.5 kg Intake: IV 20 10 Invasive Line 1 10 10 Invasive Line 2 10 Intake, IV Titration 39.524 154.694 190.998 Amount Diltiazem 125 mg In 4.333 106.833 111.333 Sodium Chloride 0.9% 100 ml @ 5 MG/HR 5 mls/hr IV .Q24H [facility] Rx#:[id number] Heparin Sod,Pork in 0.45% 35.191 47.861 79.665 NaCl 25,000 unit In 0.45 % NaCl 1 250ml.bag @ 12 UNITS/KG/HR 4.899 mls/hr IV .Q24H [facility] Rx#: [id number] Oral 50 Output: Urine 1300 450 Other: Voiding Method External Catheter External Catheter - Labs CBC & Chem 7: 01/10/24 07:05 01/10/24 07:05 Labs: Abnormal Lab Results - Last 24 Hours (Table) 01/09/24 01/09/24 01/09/24 Range/Units 00:00 18:16 19:02 WBC (3.8-10.6) k/uL Hgb (11.4-16.0) gm/dL Hct (34.0-46.0) % RDW (11.5-15.5) % Plt Count (150-450) k/uL Neutrophils # (1.3-7.7) k/uL APTT (22.0-30.0) sec Carbon Dioxide (22-30) mmol/L BUN (7-17) mg/dL Glucose (74-99) mg/dL POC Glucose (mg/dL) 143 H (70-110) mg/dL Hemoglobin A1c (<=6.0) % Troponin I 0.053 H* 0.061 H* (0.000-0.034) ng/mL 01/09/24 01/10/24 01/10/24 Range/Units 21:53 00:00 06:12 WBC (3.8-10.6) k/uL Hgb (11.4-16.0) gm/dL Hct (34.0-46.0) % RDW (11.5-15.5) % Plt Count (150-450) k/uL Neutrophils # (1.3-7.7) k/uL APTT 30.3 H (22.0-30.0) sec Carbon Dioxide (22-30) mmol/L BUN (7-17) mg/dL Glucose (74-99) mg/dL POC Glucose (mg/dL) 156 H 144 H (70-110) mg/dL Hemoglobin A1c (<=6.0) % Troponin I (0.000-0.034) ng/mL 08/04/24 08/04/24 08/04/24 Range/Units 07:05 07:05 07:05 WBC 13.5 H (3.8-10.6) k/uL Hgb 10.7 L (11.4-16.0) gm/dL Hct 33.4 L (34.0-46.0) % RDW 15.8 H (11.5-15.5) % Plt Count 486 H (150-450) k/uL Neutrophils # 11.1 H (1.3-7.7) k/uL APTT (22.0-30.0) sec Carbon Dioxide 32 H (22-30) mmol/L BUN 45 H (7-17) mg/dL Glucose 138 H (74-99) mg/dL POC Glucose (mg/dL) (70-110) mg/dL Hemoglobin A1c 7.0 H (<=6.0) % Troponin I (0.000-0.034) ng/mL 01/10/24 01/10/24 01/10/24 Range/Units 07:05 11:24 14:10 WBC (3.8-10.6) k/uL Hgb (11.4-16.0) gm/dL Hct (34.0-46.0) % RDW (11.5-15.5) % Plt Count (150-450) k/uL Neutrophils # (1.3-7.7) k/uL APTT 32.9 H 31.2 H (22.0-30.0) sec Carbon Dioxide (22-30) mmol/L BUN (7-17) mg/dL Glucose (74-99) mg/dL POC Glucose (mg/dL) 177 H (70-110) mg/dL Hemoglobin A1c (<=6.0) % Troponin I (0.000-0.034) ng/mL
[2024-01-10 16:20] LABS: Glucose,Whole Blood 168 mg/dL (70-110)
[2024-01-10] MEDS: ALPRAZolam 0.25 MG TAB PO PRN (17:58)
--- NOTE | 2024-01-10 18:15 | P.CRDCN ---
History of Present Illness Consult date: 01/10/24 History of present illness: HISTORY OF PRESENTING ILLNESS 78-year-old male with PMH of atrial fibrillation, CHF, COPD, type 2 diabetes hypertension dyslipidemia CKD and anemia presented to the hospital because of worsening shortness of breath. On admission he was found to be in atrial fibrillation with RVR with ECG showing heart rates of 140s. BP 171/94, BUN 50, creatinine 0.9, lactate 1.5, NT proBNP 19,000 CXR shows small to moderate pleural effusion on the left side REVIEW OF SYSTEMS 14 point review of system is negative except what is mentioned above in HPI. PHYSICAL EXAMINATION Vital signs reviewed. Head: Normocephalic. Eyes: Sclerae nonicteric. Neck: Brisk carotid upstroke, mildly elevated jugular venous distention. Lungs: Poor respiratory effort with diminished breath sounds, crackles audible Heart: Irregularly irregular pulse with mild systolic murmur Abdomen: Soft nontender, positive bowel sounds. Extremities: 1+ pitting edema, . Neuro: Awake but drowsy,. Detailed neuro exam was not performed. ASSESSMENT Atrial fibrillation with RVR Acute HFpEF exacerbation Acute hypoxic respiratory failure with small to moderate pleural effusion Elevated troponin with flat pattern, likely demand supply mismatch. Prior history of valvular heart disease with moderate to severe mitral stenosis and moderate to severe mitral regurgitation COPD Hypertension PLAN Continue IV heparin drip, Cardizem drip Resume Coreg Continue IV diuretics Continue the cardiac medications Further recommendations to follow Armin Kay MD, FACC, RPVI Thank you for allowing [facility] to participate in this patient's care. Feel free to reach out in case of any followup questions. Past Medical History Past Medical History: Atrial Fibrillation, Heart Failure, COPD, Diabetes Mellitus, Hypertension Additional Past Medical History / Comment(s): CKD stage 3, anemia History of Any Multi-Drug Resistant Organisms: None Reported Additional Past Surgical History / Comment(s): Deep brain stimulation Past Psychological History: Unable to Obtain Smoking Status: Former smoker Past Alcohol Use History: None Reported Past Drug Use History: None Reported Medications and Allergies Home Medications Medication Instructions Recorded Confirmed Type Acetaminophen Tab [Tylenol] 650 mg PO Q4H PRN 11/15/23 01/09/24 History Baclofen 5 mg PO TID PRN 11/15/23 01/09/24 History Doxazosin [Cardura] 2 mg PO BID@0800,1700 11/15/23 01/09/24 History Fluticasone/Vilanterol [Breo 1 puff INHALATION RT-DAILY@79911/15/23 01/09/24 History Ellipta 100-25 Mcg Inhalr] INSULIN ASPART (NovoLOG) [NovoLOG See Protocol SQ ACHS 11/15/23 01/09/24 History (formulary)] Losartan [Cozaar] 50 mg PO BID@0800,1700 11/15/23 01/09/24 History Magnesium Hydroxide [Milk of 7,200 mg PO Q2D PRN 11/15/23 01/09/24 History Magnesia Concentrate] Montelukast [Singulair] 10 mg PO DAILY@79911/15/23 01/09/24 History Na Phos,M-B/Na Phos,Di-Ba [Fleet 133 ml RECTAL DAILY PRN 11/15/23 01/09/24 History Adult] Pantoprazole [Protonix] 40 mg PO DAILY@0811/15/23 01/09/24 History Sertraline [Zoloft] 100 mg PO DAILY@0800 11/15/23 01/09/24 History bisacodyL [Dulcolax] 10 mg RECTAL DAILY PRN 11/15/23 01/09/24 History carvediloL [Coreg] 6.25 mg PO Q12HR@0800,2100 11/15/23 01/09/24 History ALPRAZolam [Xanax] 0.25 mg PO TID PRN 01/09/24 01/09/24 History Doxycycline Hyclate 100 mg PO BID@0800,1700 01/09/24 01/09/24 History Ensure Enlive 240 ml PO TID@0800,1400,1700 01/09/24 01/09/24 History HYDROcodone/APAP 5-325MG [[place] 1 tab PO Q6H PRN 01/09/24 01/09/24 History 5-325] Ipratropium-Albuterol Nebulize 3 ml INHALATION RT-Q6H PRN 01/09/24 01/09/24 History [Duoneb 0.5 mg-3 mg/3 ml Soln] Sennosides [Senokot] 8.6 mg PO BID@0800,1700 01/09/24 01/09/24 History guaiFENesin [Mucinex] 600 mg PO BID@0800,1700 01/09/24 01/09/24 History methylPREDNISolone [Medrol Dose See Taper PO DIRECTED 01/09/24 01/09/24 History Pack] Allergies Allergy/AdvReac Type Severity Reaction Status Date / Time Penicillins Allergy Rash/Hives Verified 01/09/24 09:38 Physical Exam Vitals: Vital Signs Temp Pulse Pulse Resp BP BP BP 01/10/24 15:43 97.8 F 84 18 144/64 01/10/24 11:12 97.6 F 84 18 126/61 01/10/24 08:37 01/10/24 08:00 97.7 F 109 H 16 170/66 01/10/24 04:00 97.6 F 140 H 16 125/74 01/10/24 00:00 106 H 18 145/94 01/09/24 22:00 97.6 F 131 H 18 144/78 01/09/24 21:00 126 H 16 133/75 01/09/24 20:05 126 H 01/09/24 19:56 125 H 01/09/24 19:39 97.9 F 122 H 20 120/81 01/09/24 18:43 129 H 20 133/99 Pulse Ox 01/10/24 15:43 94 L 01/10/24 11:12 95 01/10/24 08:37 93 L 01/10/24 08:00 98 01/10/24 04:00 95 01/10/24 00:00 96 01/09/24 22:00 92 L 01/09/24 21:00 97 01/09/24 20:05 01/09/24 19:56 01/09/24 19:39 90 L 01/09/24 18:43 94 L Intake and Output 01/10/24 01/10/24 01/10/24 06:59 14:59 22:59 Intake Total 47.861 250.998 156.864 Output Total 200 450 500 Balance -152.139 -199.002 -343.136 Intake: IV 10 Invasive Line 1 10 Intake, IV Titration 47.861 190.998 36.864 Amount Diltiazem 125 mg In 111.333 Sodium Chloride 0.9% 100 ml @ 5 MG/HR 5 mls/hr IV .Q24H [facility] Rx#:[id number] Heparin Sod,Pork in 0.45% 47.861 79.665 36.864 NaCl 25,000 unit In 0.45 % NaCl 1 250ml.bag @ 12 UNITS/KG/HR 4.899 mls/hr IV .Q24H [facility] Rx#: [id number] Oral 50 120 Output: Urine 200 450 500 Other: Voiding Method External Catheter External Catheter External Catheter Weight 44.5 kg Results 01/10/24 07:05 01/10/24 07:05 Cardiac Enzymes 01/09/24 01/09/24 Range/Units 00:00 18:16 Troponin I 0.053 H* 0.061 H* (0.000-0.034) ng/mL Coagulation 01/09/24 01/10/24 01/10/24 Range/Units 23:59 00:00 07:05 APTT 30.3 H 32.9 H (22.0-30.0) sec 01/10/24 Range/Units 14:10 APTT 31.2 H (22.0-30.0) sec CBC 01/10/24 Range/Units 07:05 WBC 13.5 H (3.8-10.6) k/uL RBC 3.93 (3.80-5.40) m/uL Hgb 10.7 L (11.4-16.0) gm/dL Hct 33.4 L (34.0-46.0) % Plt Count 486 H (150-450) k/uL Comprehensive Metabolic Panel 01/10/24 Range/Units 07:05 Sodium 137 (137-145) mmol/L Potassium 4.0 (3.5-5.1) mmol/L Chloride 100 (98-107) mmol/L Carbon Dioxide 32 H (22-30) mmol/L BUN 45 H (7-17) mg/dL Creatinine 1.01 (0.52-1.04) mg/dL Glucose 138 H (74-99) mg/dL Calcium 9.3 (8.4-10.2) mg/dL Current Medications Generic Name Dose Route Start Last Admin Trade Name Freq PRN Reason Stop Dose Admin Acetaminophen 650 mg 01/09/24 18:00 Acetaminophen Tab 325 Mg Tab PO Q6HR PRN Mild Pain or Fever > 100.5 Hydrocodone Bitart/Acetaminophen 1 each 01/09/24 18:03 Hydrocodone/Apap 5-325mg 1 Each Tab PO Q6H PRN Pain Albuterol Sulfate 1 puff 01/09/24 18:08 Albuterol Hfa Inhaler INHALATION RT-QID PRN Shortness Of Breath Or Wheezing Albuterol/Ipratropium 3 ml 01/09/24 18:03 01/09/24 19:55 Ipratropium-Albuterol 3 Ml Neb INHALATION 3 ml RT-Q6H PRN Administration Shortness Of Breath Alprazolam 0.25 mg 01/09/24 18:03 01/10/24 17:58 Alprazolam 0.25 Mg Tab PO 0.25 mg TID PRN Administration Anxiety Baclofen 5 mg 01/09/24 18:03 Baclofen 10 Mg Tab PO TID PRN Muscle Spasm Bisacodyl 10 mg 01/09/24 18:03 Bisacodyl 10 Mg Supp RECTAL DAILY PRN Constipation Budesonide/Formoterol Fumarate 2 puff 01/10/24 08:00 01/10/24 08:35 Symbicort 80-4.5 Mcg Inhaler INHALATION 2 puff RT-BID [facility] Administration Carvedilol 6.25 mg 01/09/24 21:00 01/10/24 08:11 Carvedilol 6.25 Mg Tab PO 6.25 mg Q12HR@0800,2100 [facility] Administration Dextrose/Water 25 ml 01/09/24 18:17 Dextrose 50% Syringe 50 Ml IVP PER PROTOCOL PRN Hypoglycemia Protocol Dextrose/Water 50 ml 01/09/24 18:17 Dextrose 50% Syringe 50 Ml IVP PER PROTOCOL PRN Hypoglycemia Protocol Doxazosin Mesylate 2 mg 01/10/24 08:00 01/10/24 17:12 Doxazosin 2 Mg Tab PO 2 mg BID@0800,1700 [facility] Administration Furosemide 40 mg 01/10/24 09:00 01/10/24 08:11 Furosemide 10 Mg/Ml 4 Ml Vial IV 40 mg DAILY [facility] Administration Guaifenesin 600 mg 01/10/24 08:00 01/10/24 17:12 Guaifenesin 600 Mg Tablet.Er PO 600 mg BID@0800,1700 [facility] Administration Heparin Sodium (Porcine) 0 unit 01/09/24 16:42 01/10/24 00:57 Heparin Sodium 1,000 Un/Ml (10ml Vl) IV 2,000 unit PER PROTOCOL PRN Administration Low PTT Protocol Diltiazem HCl 125 mg/ Sodium 125 mls @ 5 mls/hr 01/09/24 10:00 01/10/24 08:29 Chloride IV 10 mg/hr .Q24H [facility] 10 mls/hr Administration 5 MG/HR Heparin Sodium/Sodium Chloride 250 mls @ 4.899 mls/hr 01/09/24 09:30 01/10/24 15:37 25,000 unit/ Sodium Chloride IV 24 units/kg/hr .Q24H [facility] 9.798 mls/hr Titration Protocol 12 UNITS/KG/HR Insulin Aspart 0 unit 01/09/24 21:00 01/10/24 17:12 Insulin Aspart (Novolog) 100 Unit/Ml Vial SQ 1 unit ACHS [facility] Administration Protocol Losartan Potassium 50 mg 01/10/24 08:00 01/10/24 17:12 Losartan 50 Mg Tab PO 50 mg BID@0800,1700 [facility] Administration Magnesium Hydroxide 2,400 mg 01/10/24 12:20 01/10/24 12:32 Magnesium Hydroxide 2,400 Mg/30 Ml Cup PO 2,400 mg DAILY PRN Administration Constipation Montelukast Sodium 10 mg 01/10/24 08:00 01/10/24 08:11 Montelukast 10 Mg Tab PO 10 mg DAILY@0800 [facility] Administration Pantoprazole Sodium 40 mg 01/10/24 08:00 01/10/24 08:11 Pantoprazole 40 Mg Tablet PO 40 mg DAILY@0800 [facility] Administration Senna 8.6 mg 01/10/24 08:00 01/10/24 17:12 Sennosides 8.6 Mg Tab PO 8.6 mg BID@0800,1700 [facility] Administration Sertraline HCl 100 mg 01/10/24 08:00 01/10/24 08:11 Sertraline 100 Mg Tab PO 100 mg DAILY@0800 [facility] Administration Intake and Output 01/10/24 01/10/24 01/10/24 06:59 14:59 22:59 Intake Total 47.861 250.998 156.864 Output Total 200 450 500 Balance -152.139 -199.002 -343.136 Intake: IV 10 Invasive Line 1 10 Intake, IV Titration 47.861 190.998 36.864 Amount Diltiazem 125 mg In 111.333 Sodium Chloride 0.9% 100 ml @ 5 MG/HR 5 mls/hr IV .Q24H [facility] Rx#:[id number] Heparin Sod,Pork in 0.45% 47.861 79.665 36.864 NaCl 25,000 unit In 0.45 % NaCl 1 250ml.bag @ 12 UNITS/KG/HR 4.899 mls/hr IV .Q24H [facility] Rx#: [id number] Oral 50 120 Output: Urine 200 450 500 Other: Voiding Method External Catheter External Catheter External Catheter Weight 44.5 kg 01/10/24 07:05 01/10/24 07:05
[2024-01-10 20:04] LABS: Glucose,Whole Blood 178 mg/dL (70-110)
[2024-01-10] MEDS: bisacodyL 10 MG SUPP RECTAL PRN (22:04)
[2024-01-10] MEDS ORDERED: ZOLPIDEM 5 MG TAB PO PRN (22:18)
[2024-01-11 03:22] VITALS: RESP 16
[2024-01-11 03:28] VITALS: BP 136/95; PULSE 79; TEMP 97.9
[2024-01-11 06:06] LABS: Glucose,Whole Blood 150 mg/dL (70-110)
[2024-01-11] MEDS ORDERED: LOSARTAN 50 MG TAB ONE ×2 (09:15→16:54)
[2024-01-11] MEDS ORDERED: FUROSEMIDE 10 MG/ML 4 ML VIAL ONE (09:16)
[2024-01-11] MEDS ORDERED: PANTOPRAZOLE 40 MG TABLET PO ONE (09:16)
[2024-01-11] MEDS ORDERED: guaiFENesin 600 MG TABLET.ER PO ONE ×2 (09:16→16:54)
[2024-01-11] MEDS ORDERED: carvediloL 6.25 MG TAB ONE ×2 (09:16→12:08)
[2024-01-11] MEDS ORDERED: MONTELUKAST 10 MG TAB ONE (09:16)
[2024-01-11] MEDS ORDERED: SENNOSIDES 8.6 MG TAB ONE ×2 (09:16→16:55)
[2024-01-11] MEDS ORDERED: SERTRALINE 100 MG TAB ONE (09:16)
[2024-01-11 11:56] LABS: Glucose,Whole Blood 163 mg/dL (70-110)
[2024-01-11] MEDS ORDERED: APIXABAN 2.5 MG TABLET ONE ×2 (12:08→21:17)
[2024-01-11] MEDS ORDERED: INSULIN ASPART (NovoLOG) 100 UNIT/ML VIAL SQ ONE ×2 (12:20→21:17)
[2024-01-11 17:05] LABS: Glucose,Whole Blood 101 mg/dL (70-110)
[2024-01-11 20:19] LABS: Glucose,Whole Blood 179 mg/dL (70-110)
[2024-01-11] MEDS ORDERED: carvediloL 12.5 MG TAB ONE (21:17)
[2024-01-12 05:59] LABS: Glucose,Whole Blood 142 mg/dL (70-110)
[2024-01-12] MEDS ORDERED: guaiFENesin 600 MG TABLET.ER PO ONE ×2 (07:56→16:08)
[2024-01-12] MEDS ORDERED: LOSARTAN 50 MG TAB ONE ×2 (07:56→16:07)
[2024-01-12] MEDS ORDERED: SENNOSIDES 8.6 MG TAB ONE ×2 (07:56→16:08)
[2024-01-12] MEDS ORDERED: FUROSEMIDE 10 MG/ML 4 ML VIAL ONE (07:56)
[2024-01-12] MEDS ORDERED: PANTOPRAZOLE 40 MG TABLET PO ONE (07:56)
[2024-01-12] MEDS ORDERED: MONTELUKAST 10 MG TAB ONE (07:56)
[2024-01-12] MEDS ORDERED: carvediloL 6.25 MG TAB ONE (07:57)
[2024-01-12] MEDS ORDERED: SERTRALINE 100 MG TAB ONE (07:57)
[2024-01-12] MEDS ORDERED: APIXABAN 2.5 MG TABLET ONE ×2 (08:09→20:11)
[2024-01-12 11:48] LABS: Glucose,Whole Blood 136 mg/dL (70-110)
[2024-01-12] MEDS ORDERED: ALPRAZolam 0.25 MG TAB ONE ×2 (16:08→20:10)
[2024-01-12 16:51] LABS: Glucose,Whole Blood 190 mg/dL (70-110)
[2024-01-12] MEDS ORDERED: INSULIN ASPART (NovoLOG) 100 UNIT/ML VIAL SQ ONE ×2 (17:21→20:11)
[2024-01-12 18:21] LABS: Glucose,Whole Blood 185 mg/dL (70-110)
[2024-01-12 20:01] LABS: Glucose,Whole Blood 151 mg/dL (70-110)
[2024-01-12] MEDS ORDERED: carvediloL 12.5 MG TAB ONE (20:11)
[2024-01-13 06:05] LABS: Glucose,Whole Blood 154 mg/dL (70-110)
[2024-01-13] MEDS ORDERED: INSULIN ASPART (NovoLOG) 100 UNIT/ML VIAL SQ ONE ×4 (06:18→21:05)
[2024-01-13] MEDS ORDERED: LOSARTAN 50 MG TAB ONE ×2 (07:52→15:10)
[2024-01-13] MEDS ORDERED: guaiFENesin 600 MG TABLET.ER PO ONE ×2 (07:52→15:11)
[2024-01-13] MEDS ORDERED: SENNOSIDES 8.6 MG TAB ONE ×2 (07:52→15:11)
[2024-01-13] MEDS ORDERED: MONTELUKAST 10 MG TAB ONE (07:52)
[2024-01-13] MEDS ORDERED: PANTOPRAZOLE 40 MG TABLET PO ONE (07:52)
[2024-01-13] MEDS ORDERED: FUROSEMIDE 10 MG/ML 4 ML VIAL ONE (07:52)
[2024-01-13] MEDS ORDERED: carvediloL 6.25 MG TAB ONE ×3 (07:53→21:04)
[2024-01-13] MEDS ORDERED: SERTRALINE 100 MG TAB ONE (07:53)
[2024-01-13] MEDS ORDERED: APIXABAN 2.5 MG TABLET ONE ×2 (08:31→21:04)
[2024-01-13] MEDS ORDERED: DILTIAZEM ORAL 60 MG TAB ONE ×3 (10:08→23:13)
[2024-01-13 11:40] LABS: Glucose,Whole Blood 280 mg/dL (70-110)
[2024-01-13 15:18] LABS: Glucose,Whole Blood 71 mg/dL (70-110)
[2024-01-13 16:34] LABS: Glucose,Whole Blood 83 mg/dL (70-110)
[2024-01-13 20:18] LABS: Glucose,Whole Blood 273 mg/dL (70-110)
[2024-01-13] MEDS ORDERED: ALPRAZolam 0.25 MG TAB ONE (23:19)
[2024-01-14 05:31] LABS: Glucose,Whole Blood 151 mg/dL (70-110)
[2024-01-14] MEDS ORDERED: IPRATROPIUM-ALBUTEROL 3 ML NEB ONE (07:48)
[2024-01-14] MEDS ORDERED: guaiFENesin 600 MG TABLET.ER PO ONE ×2 (07:49→16:02)
[2024-01-14] MEDS ORDERED: PANTOPRAZOLE 40 MG TABLET PO ONE (07:49)
[2024-01-14] MEDS ORDERED: MONTELUKAST 10 MG TAB ONE (07:49)
[2024-01-14] MEDS ORDERED: SENNOSIDES 8.6 MG TAB ONE ×2 (07:49→16:02)
[2024-01-14] MEDS ORDERED: LOSARTAN 50 MG TAB ONE ×2 (07:49→16:02)
[2024-01-14] MEDS ORDERED: carvediloL 6.25 MG TAB ONE (07:50)
[2024-01-14] MEDS ORDERED: SERTRALINE 100 MG TAB ONE (07:50)
[2024-01-14] MEDS ORDERED: FUROSEMIDE 40 MG TAB ONE (07:52)
[2024-01-14] MEDS ORDERED: APIXABAN 2.5 MG TABLET ONE ×2 (07:52→20:14)
[2024-01-14] MEDS ORDERED: DILTIAZEM ORAL 60 MG TAB ONE ×3 (07:52→20:15)
[2024-01-14 11:32] LABS: Glucose,Whole Blood 239 mg/dL (70-110)
[2024-01-14] MEDS ORDERED: carvediloL 12.5 MG TAB ONE ×2 (11:33→20:16)
[2024-01-14] MEDS ORDERED: INSULIN ASPART (NovoLOG) 100 UNIT/ML VIAL SQ ONE ×2 (11:49→20:17)
[2024-01-14] MEDS ORDERED: ALPRAZolam 0.25 MG TAB ONE ×2 (16:10→20:21)
[2024-01-14 16:44] LABS: Glucose,Whole Blood 118 mg/dL (70-110)
[2024-01-14 20:17] LABS: Glucose,Whole Blood 213 mg/dL (70-110)
[2024-01-15 05:24] LABS: Glucose,Whole Blood 156 mg/dL (70-110)
[2024-01-15] MEDS ORDERED: INSULIN ASPART (NovoLOG) 100 UNIT/ML VIAL SQ ONE ×2 (06:35→20:12)
[2024-01-15] MEDS ORDERED: PANTOPRAZOLE 40 MG TABLET PO ONE (07:27)
[2024-01-15] MEDS ORDERED: SENNOSIDES 8.6 MG TAB ONE ×2 (07:27→17:10)
[2024-01-15] MEDS ORDERED: LOSARTAN 50 MG TAB ONE ×2 (07:27→17:09)
[2024-01-15] MEDS ORDERED: MONTELUKAST 10 MG TAB ONE (07:27)
[2024-01-15] MEDS ORDERED: guaiFENesin 600 MG TABLET.ER PO ONE ×2 (07:27→17:10)
[2024-01-15] MEDS ORDERED: carvediloL 6.25 MG TAB ONE (07:28)
[2024-01-15] MEDS ORDERED: SERTRALINE 100 MG TAB ONE (07:28)
[2024-01-15] MEDS ORDERED: APIXABAN 2.5 MG TABLET ONE ×2 (07:30→20:12)
[2024-01-15] MEDS ORDERED: FUROSEMIDE 40 MG TAB ONE (07:30)
[2024-01-15] MEDS ORDERED: DILTIAZEM ORAL 60 MG TAB ONE ×3 (07:30→20:13)
[2024-01-15] MEDS ORDERED: carvediloL 12.5 MG TAB ONE ×2 (07:31→20:12)
[2024-01-15 11:56] LABS: Glucose,Whole Blood 217 mg/dL (70-110)
[2024-01-15] MEDS ORDERED: ALPRAZolam 0.25 MG TAB ONE ×2 (15:06→20:11)
[2024-01-15] MEDS ORDERED: DILTIAZEM ORAL 30 MG TAB ONE ×2 (17:18→20:12)
[2024-01-15 19:55] LABS: Glucose,Whole Blood 252 mg/dL (70-110)
[2024-01-16 02:31] LABS: Glucose,Whole Blood 155 mg/dL (70-110)
[2024-01-16 05:56] LABS: Glucose,Whole Blood 159 mg/dL (70-110)
[2024-01-16] MEDS ORDERED: INSULIN ASPART (NovoLOG) 100 UNIT/ML VIAL SQ ONE ×3 (06:18→20:26)
[2024-01-16] MEDS ORDERED: guaiFENesin 600 MG TABLET.ER PO ONE ×2 (08:06→16:59)
[2024-01-16] MEDS ORDERED: PANTOPRAZOLE 40 MG TABLET PO ONE (08:06)
[2024-01-16] MEDS ORDERED: MONTELUKAST 10 MG TAB ONE (08:06)
[2024-01-16] MEDS ORDERED: SENNOSIDES 8.6 MG TAB ONE (08:06)
[2024-01-16] MEDS ORDERED: LOSARTAN 50 MG TAB ONE ×2 (08:06→16:59)
[2024-01-16] MEDS ORDERED: DOXAZOSIN 4 MG TAB ONE ×2 (08:07→16:59)
[2024-01-16] MEDS ORDERED: SERTRALINE 100 MG TAB ONE (08:07)
[2024-01-16] MEDS ORDERED: carvediloL 12.5 MG TAB ONE ×2 (08:07→20:23)
[2024-01-16] MEDS ORDERED: DILTIAZEM ORAL 30 MG TAB ONE ×3 (08:07→20:23)
[2024-01-16] MEDS ORDERED: DILTIAZEM ORAL 60 MG TAB ONE ×3 (08:07→20:23)
[2024-01-16] MEDS ORDERED: APIXABAN 2.5 MG TABLET ONE ×2 (08:07→20:23)
[2024-01-16] MEDS ORDERED: FUROSEMIDE 40 MG TAB ONE (08:07)
[2024-01-16 20:06] LABS: Glucose,Whole Blood 186 mg/dL (70-110)
[2024-01-16] MEDS ORDERED: ALPRAZolam 0.25 MG TAB ONE (20:23)
[2024-01-17 05:07] LABS: Glucose,Whole Blood 160 mg/dL (70-110)
[2024-01-17] MEDS ORDERED: MONTELUKAST 10 MG TAB ONE (07:51)
[2024-01-17] MEDS ORDERED: PANTOPRAZOLE 40 MG TABLET PO ONE (07:51)
[2024-01-17] MEDS ORDERED: LOSARTAN 50 MG TAB ONE ×2 (07:51→16:57)
[2024-01-17] MEDS ORDERED: DILTIAZEM ORAL 30 MG TAB ONE ×3 (07:52→20:56)
[2024-01-17] MEDS ORDERED: guaiFENesin 600 MG TABLET.ER PO ONE ×2 (07:52→16:58)
[2024-01-17] MEDS ORDERED: DILTIAZEM ORAL 60 MG TAB ONE ×2 (07:52→13:35)
[2024-01-17] MEDS ORDERED: SERTRALINE 100 MG TAB ONE (07:52)
[2024-01-17] MEDS ORDERED: FUROSEMIDE 40 MG TAB ONE (07:52)
[2024-01-17] MEDS ORDERED: carvediloL 12.5 MG TAB ONE ×2 (07:53→20:49)
[2024-01-17] MEDS ORDERED: DOXAZOSIN 4 MG TAB ONE ×2 (07:53→16:58)
[2024-01-17] MEDS ORDERED: APIXABAN 2.5 MG TABLET ONE ×2 (07:53→20:49)
[2024-01-17] MEDS ORDERED: INSULIN ASPART (NovoLOG) 100 UNIT/ML VIAL SQ ONE ×2 (11:38→16:58)
[2024-01-17] MEDS ORDERED: MAGNESIUM HYDROXIDE 2,400 MG/30 ML CUP ONE (12:50)
[2024-01-17] MEDS ORDERED: ONDANSETRON 4 MG/2 ML VIAL ONE ×2 (16:29)
[2024-01-17 16:39] LABS: Glucose,Whole Blood 163 mg/dL (70-110)
[2024-01-17 20:35] LABS: Glucose,Whole Blood 272 mg/dL (70-110)
[2024-01-18 06:06] LABS: Glucose,Whole Blood 157 mg/dL (70-110)
[2024-01-18] MEDS ORDERED: IPRATROPIUM-ALBUTEROL 3 ML NEB ONE (07:32)
[2024-01-18] MEDS ORDERED: SYMBICORT 80-4.5 MCG INHALER INHALATION ONE (08:32)
[2024-01-18] MEDS ORDERED: LOSARTAN 50 MG TAB ONE ×2 (08:48→16:03)
[2024-01-18] MEDS ORDERED: PANTOPRAZOLE 40 MG TABLET PO ONE (08:48)
[2024-01-18] MEDS ORDERED: MONTELUKAST 10 MG TAB ONE (08:48)
[2024-01-18] MEDS ORDERED: guaiFENesin 600 MG TABLET.ER PO ONE ×2 (08:48→16:04)
[2024-01-18] MEDS ORDERED: SENNOSIDES 8.6 MG TAB ONE ×2 (08:48→16:05)
[2024-01-18] MEDS ORDERED: SERTRALINE 100 MG TAB ONE (08:49)
[2024-01-18] MEDS ORDERED: APIXABAN 2.5 MG TABLET ONE ×2 (08:50→20:57)
[2024-01-18] MEDS ORDERED: FUROSEMIDE 40 MG TAB ONE (08:50)
[2024-01-18] MEDS ORDERED: DILTIAZEM ORAL 60 MG TAB ONE (08:52)
[2024-01-18] MEDS ORDERED: DILTIAZEM ORAL 30 MG TAB ONE ×3 (08:52→20:57)
[2024-01-18] MEDS ORDERED: carvediloL 12.5 MG TAB ONE ×2 (08:53→20:57)
[2024-01-18] MEDS ORDERED: FUROSEMIDE 10 MG/ML 10 ML VIAL ONE ×4 (10:21→20:56)
[2024-01-18 11:34] LABS: Glucose,Whole Blood 333 mg/dL (70-110)
[2024-01-18] MEDS ORDERED: INSULIN ASPART (NovoLOG) 100 UNIT/ML VIAL SQ ONE ×3 (12:14→20:58)
[2024-01-18] MEDS ORDERED: ALPRAZolam 0.25 MG TAB ONE (16:04)
[2024-01-19] MEDS ORDERED: LOSARTAN 50 MG TAB ONE ×2 (09:17→16:41)
[2024-01-19] MEDS ORDERED: PANTOPRAZOLE 40 MG TABLET PO ONE (09:18)
[2024-01-19] MEDS ORDERED: SENNOSIDES 8.6 MG TAB ONE ×2 (09:18→16:42)
[2024-01-19] MEDS ORDERED: MONTELUKAST 10 MG TAB ONE (09:18)
[2024-01-19] MEDS ORDERED: guaiFENesin 600 MG TABLET.ER PO ONE ×2 (09:18→16:42)
[2024-01-19] MEDS ORDERED: carvediloL 6.25 MG TAB ONE (09:19)
[2024-01-19] MEDS ORDERED: FUROSEMIDE 10 MG/ML 10 ML VIAL ONE ×4 (09:19→20:10)
[2024-01-19] MEDS ORDERED: SERTRALINE 100 MG TAB ONE (09:19)
[2024-01-19] MEDS ORDERED: DILTIAZEM ORAL 30 MG TAB ONE ×3 (09:20→20:11)
[2024-01-19] MEDS ORDERED: carvediloL 12.5 MG TAB ONE ×2 (09:20→20:11)
[2024-01-19] MEDS ORDERED: APIXABAN 2.5 MG TABLET ONE ×2 (09:22→20:11)
[2024-01-19] MEDS ORDERED: IPRATROPIUM-ALBUTEROL 3 ML NEB ONE ×3 (11:16→19:34)
[2024-01-19] MEDS ORDERED: INSULIN ASPART (NovoLOG) 100 UNIT/ML VIAL SQ ONE (12:04)
[2024-01-19] MEDS ORDERED: ALPRAZolam 0.25 MG TAB ONE ×2 (16:58→20:10)
[2024-01-19] MEDS ORDERED: SYMBICORT 80-4.5 MCG INHALER INHALATION ONE (19:39)
[2024-01-19] MEDS ORDERED: HYDROcodone/APAP 5-325MG 1 EACH TAB ONE (20:22)
[2024-01-20] MEDS ORDERED: IPRATROPIUM-ALBUTEROL 3 ML NEB ONE (04:31)
[2024-01-20 06:12] LABS: Glucose,Whole Blood 175 mg/dL (70-110)
[2024-01-20] MEDS ORDERED: FUROSEMIDE 10 MG/ML 10 ML VIAL ONE ×2 (07:41)
[2024-01-20] MEDS ORDERED: guaiFENesin 600 MG TABLET.ER PO ONE ×2 (07:42→16:40)
[2024-01-20] MEDS ORDERED: DILTIAZEM ORAL 30 MG TAB ONE ×2 (07:42→21:05)
[2024-01-20] MEDS ORDERED: LOSARTAN 50 MG TAB ONE ×2 (07:42→16:39)
[2024-01-20] MEDS ORDERED: MONTELUKAST 10 MG TAB ONE (07:42)
[2024-01-20] MEDS ORDERED: PANTOPRAZOLE 40 MG TABLET PO ONE (07:42)
[2024-01-20] MEDS ORDERED: SERTRALINE 100 MG TAB ONE (07:42)
[2024-01-20] MEDS ORDERED: DOXAZOSIN 4 MG TAB ONE ×2 (07:42→16:40)
[2024-01-20] MEDS ORDERED: DILTIAZEM ORAL 60 MG TAB ONE ×2 (07:42→21:05)
[2024-01-20] MEDS ORDERED: carvediloL 12.5 MG TAB ONE ×2 (07:43→21:05)
[2024-01-20] MEDS ORDERED: APIXABAN 2.5 MG TABLET ONE ×2 (07:43→20:58)
[2024-01-20] MEDS ORDERED: INSULIN ASPART (NovoLOG) 100 UNIT/ML VIAL SQ ONE ×2 (11:37→21:06)
[2024-01-20 20:14] LABS: Glucose,Whole Blood 193 mg/dL (70-110)
[2024-01-21] MEDS ORDERED: IPRATROPIUM-ALBUTEROL 3 ML NEB ONE (04:38)
[2024-01-21 05:32] LABS: Glucose,Whole Blood 189 mg/dL (70-110)
[2024-01-21] MEDS ORDERED: INSULIN ASPART (NovoLOG) 100 UNIT/ML VIAL SQ ONE ×4 (06:33→20:34)
[2024-01-21] MEDS ORDERED: guaiFENesin 600 MG TABLET.ER PO ONE ×2 (07:44→16:45)
[2024-01-21] MEDS ORDERED: DILTIAZEM ORAL 30 MG TAB ONE ×3 (07:44→20:33)
[2024-01-21] MEDS ORDERED: PANTOPRAZOLE 40 MG TABLET PO ONE (07:44)
[2024-01-21] MEDS ORDERED: MONTELUKAST 10 MG TAB ONE (07:44)
[2024-01-21] MEDS ORDERED: LOSARTAN 50 MG TAB ONE ×2 (07:44→16:45)
[2024-01-21] MEDS ORDERED: DILTIAZEM ORAL 60 MG TAB ONE ×3 (07:44→20:33)
[2024-01-21] MEDS ORDERED: SERTRALINE 100 MG TAB ONE (07:44)
[2024-01-21] MEDS ORDERED: FUROSEMIDE 10 MG/ML 10 ML VIAL ONE ×2 (07:44)
[2024-01-21] MEDS ORDERED: DOXAZOSIN 4 MG TAB ONE ×2 (07:45→16:45)
[2024-01-21] MEDS ORDERED: carvediloL 12.5 MG TAB ONE ×2 (07:45→20:33)
[2024-01-21] MEDS ORDERED: HYDROcodone/APAP 5-325MG 1 EACH TAB ONE (20:32)
[2024-01-21] MEDS ORDERED: APIXABAN 2.5 MG TABLET ONE (20:33)
[2024-01-22] MEDS ORDERED: INSULIN ASPART (NovoLOG) 100 UNIT/ML VIAL SQ ONE ×2 (06:10→11:56)
[2024-01-22] MEDS ORDERED: LOSARTAN 50 MG TAB ONE ×2 (08:38→16:20)
[2024-01-22] MEDS ORDERED: FUROSEMIDE 10 MG/ML 10 ML VIAL ONE ×2 (08:38)
[2024-01-22] MEDS ORDERED: DILTIAZEM ORAL 30 MG TAB ONE ×2 (08:39→16:20)
[2024-01-22] MEDS ORDERED: HYDROcodone/APAP 5-325MG 1 EACH TAB ONE (08:39)
[2024-01-22] MEDS ORDERED: PANTOPRAZOLE 40 MG TABLET PO ONE (08:39)
[2024-01-22] MEDS ORDERED: MONTELUKAST 10 MG TAB ONE (08:39)
[2024-01-22] MEDS ORDERED: SENNOSIDES 8.6 MG TAB ONE ×2 (08:39→16:22)
[2024-01-22] MEDS ORDERED: guaiFENesin 600 MG TABLET.ER PO ONE ×2 (08:39→16:20)
[2024-01-22] MEDS ORDERED: carvediloL 12.5 MG TAB ONE (08:40)
[2024-01-22] MEDS ORDERED: SERTRALINE 100 MG TAB ONE (08:40)
[2024-01-22] MEDS ORDERED: APIXABAN 2.5 MG TABLET ONE (08:40)
[2024-01-22] MEDS ORDERED: DILTIAZEM ORAL 60 MG TAB ONE ×2 (08:40→16:21)
[2024-01-22] MEDS ORDERED: DOXAZOSIN 4 MG TAB ONE ×2 (08:40→16:22)
[2024-01-22] MEDS ORDERED: IPRATROPIUM-ALBUTEROL 3 ML NEB ONE (18:24)
--- NOTE | 2024-02-16 12:19 | US ---
EXAMINATION TYPE: US chest DATE OF EXAM: 02/16/2024 COMPARISON: NONE CLINICAL INDICATION: Female, 78 years old with history of Bilat pl eff; TECHNIQUE: Targeted ultrasound of the posterior lower bilateral hemithoraces EXAM MEASUREMENTS: Right Pleural Effusion pocket size: 5.8 cm Right skin surface to fluid distance: 1.6 cm Left Pleural Effusion pocket size: 4.8 cm Left skin surface to fluid distance: 1.5 cm Right side marked for possible thoracentesis outside the dept. Left side marked for possible thoracentesis outside the dept. Pulmonologists are able to review the images in the patient?s EMR. IMPRESSIONS: Small bilateral pleural effusions.
--- NOTE | 2024-02-23 07:58 | XR ---
Patient Vivienne Colón ID [id number] Order # EXAMINATION TYPE: XR chest 1V DATE OF EXAM: 01/21/2024 COMPARISON: No Comparison on downtime PACS INDICATION: Dyspnea TECHNIQUE: Single frontal view of the chest is obtained. FINDINGS: The heart size is large. The pulmonary vasculature is normal. Perihilar infiltrates are present. Right lower lobe pleural effusion is present. Small left pleural e ffusion may be present. IMPRESSION: 1. Focal correlation for congestive heart failure. 2. Small right and minimal left pleural effusions. 3. Perihilar infiltrates correlate for atypical pulmonary edema, atelectasis and pneumonia. 4. Follow-up recommended
--- NOTE | 2024-02-23 11:52 | XR ---
Site ID [facility] Patient Vivienne Colón ID [id number] Order # Procedure CHEST PORTABLE 1 VIEW EXAMINATION TYPE: XR chest 1V DATE OF EXAM: 01/21/2024 8:37 AM CLINICAL INDICATION: COPD COMPARISON: THIS EXAM WAS READ DURING PACS DOWNTIME, NO PRIORS AVAILABLE. TECHNIQUE: XR chest 1V Frontal view of the chest. FINDINGS: Lungs/Pleura: No evidence of focal consolidation or pneumothorax. Blunting of the costophrenic angles is present. Pulmonary vascularity: Mild pulmonary vascular congestion. Heart/mediastinum: Cardiomediastinal silhouette is enlarged. Musculoskeletal: No acute osseous pathology. IMPRESSION: Cardiomegaly, pulmonary vascular congestion and bilateral pleural effusions. Correlate with BNP for c ongestive heart failure.
== END 2024-01-22 17:10 | disposition home or self-care (01) | DRG 308 ==
LOC: EC 09:06 → 3SCARD 11:25
PROVIDERS: ADMIT Hospitalist; ATTEND Hospitalist
PROC: 3E0F7SF Introduction of Other Gas into Respiratory Tract, Via Natural or Artificial Opening (ICD-10-PCS; principal; 2024-01-09)
DX: I48.0 Paroxysmal atrial fibrillation (principal); E43 Unspecified severe protein-calorie malnutrition; I50.33 Acute on chronic diastolic (congestive) heart failure; J96.21 Acute and chronic respiratory failure with hypoxia; I13.0 Hypertensive heart and chronic kidney disease with heart failure and stage 1 through stage 4 chronic kidney disease, or unspecified chronic kidney disease; I24.89 Other forms of acute ischemic heart disease; R64 Cachexia; E11.22 Type 2 diabetes mellitus with diabetic chronic kidney disease; I27.20 Pulmonary hypertension, unspecified; E78.5 Hyperlipidemia, unspecified; R54 Age-related physical debility; I34.0 Nonrheumatic mitral (valve) insufficiency; E87.5 Hyperkalemia; F32.A Depression, unspecified; J44.9 Chronic obstructive pulmonary disease, unspecified; N18.30 Chronic kidney disease, stage 3 unspecified; Z79.899 Other long term (current) drug therapy; Z87.891 Personal history of nicotine dependence; Z87.01 Personal history of pneumonia (recurrent)
CPT/HCPCS: 36415; 71045; 71046; 76604; 80048; 80053; 83036; 83605; 83735; 83880; 84484; 85025; 85027; 85610; 85730; 93005; 94640; 94760; 96365; 96366; 96368; 96375; 99291